=== PATIENT | female | born 1975 | race Caucasian/White ===

== ENCOUNTER → 2016-05-13 | Outpatient (CLI) | payer BC, OTHER ==
[2016-04-30 14:05] VITALS: BP 168/88
[~2016-05-13] MED LIST: ALPR0.5T PO; ATOR40TA PO; CHOL500050 PO; CYAN100072 IM; DICL100G7 TP; DOXY100T PO; EMPA10TA PO; EZET1TAB5 PO; FLUO40CA9 PO; FURO-68 PO; GABA-586 PO; HYDR-2672 PO; HYDR-2678 PO; HYDR-2680 PO; HYDR-971 PO; LEVO175T2 PO; LEVO500T38 PO; LEVO750T31 PO; LEVO75TA5 PO; LIOT25TA3 PO; LIRA0.6P2 SQ; MELO15TA6 PO; METF500T4 PO; METH-38 PO; METH500T7 PO; METH750T2 PO; METR500T PO; MOME13HF2 IH; NAPR500T PO; OMEP40CA5 PO; ONDA4TAB10 SL; OXYB5TAB7 PO; POTA10CA PO; POTA20TA12 PO; PRAM0.125 PO; PRAM0.255 PO; PROAIR HFA8.5 GM IH; PROG100C7 PO; PROG200C2 PO; PROG200C7 PO; SAXA2.5T PO; SAXA5TAB PO; SENN1TAB70 PO; SIMV40TA3 PO; THYR30TA PO; THYR60TA PO; TIOT18CA IH; TIZA4TAB PO; TOPI200C PO; TOPI200T25 PO; UBID100C26 PO; UBID30CA9 PO; VARE1TAB21 PO; VARE1TAB5 PO; clindamycin; dhea; dulera; pregnenolone
--- NOTE | 2016-05-13 10:52 | RAD ---
Chest, 2 views, 05/13/2016: History: Shortness of breath Comparison is made to a study from 04/14/2014. The heart size and pulmonary vascularity are normal. No pulmonary infiltrates are seen. There is no evidence of pleural fluid. IMPRESSION: No acute cardiopulmonary abnormality is detected.
== END | disposition home or self-care (01) ==
LOC: RAD 10:09
PROVIDERS: ATTEND Internal Medicine Critical Care Medicine
DX: R06.02 Shortness of breath (principal)
CPT/HCPCS: 71020

== ENCOUNTER 2016-06-18 00:49 | Emergency (ER) | payer BC, OTHER ==
[~2016-06-18] VITALS: Ht 172.7 cm; Wt 163.3 kg
[2016-06-18 01:44] LABS: BILIRUBIN,URINE NEGATIVE (NEG); GLUCOSE,URINE >=1000 mg/dL (NEG); NITRITE,URINE NEGATIVE (NEG); PROTEIN,URINE NEGATIVE (NEG-TRACE); UROBILINOGEN,URINE 0.2 mg/dL (0.2 mg/dL)
[2016-06-18 01:54] LABS: BACTERIA,URINE MODERATE /HPF (0-FEW); RBC,URINE 0 /HPF (0-2)
[2016-06-18 01:55] LABS: SQUAMOUS EPITHELIAL CELL,UR MANY /LPF
[2016-06-18] MEDS ORDERED: METR500T PO (02:16)
[2016-06-18] MEDS ORDERED: CIPR500T94 PO (02:16)
--- NOTE | 2016-06-18 02:16 | PHYS DOC ---
Past Medical History Past Medical History: Asthma, COPD, Diabetes-Type II, Diverticulitis, Diverticulosis Additional Past Medical Histor: Hypokalemia, Morbid Obesity Past Surgical History: Appendectomy, Cholecystectomy, Colectomy, Hysterectomy, Tonsillectomy Additional Past Surgical Histo: bladder tape. knee surgery scope, PART OF COLON REMOVED DUE TO DIV Alcohol Use: None Drug Use: None Adult General Chief Complaint Chief Complaint: VAGINAL PROBLEM HPI HPI 41-year-old female presents with pelvic pain vaginal discharge. She states is been going on for couple of days but the pain has intensified throughout the day today. She denies any fever chills or sweats. She's had no nausea or vomiting. She's had no vaginal bleeding or discharge. She states the pain is worse with any activity. She states she has not been sexually active recently. [ ] Review of Systems Review of Systems Constitutional: Denies fever or chills [] Eyes: Denies change in visual acuity, redness, or eye pain [] HENT: Denies nasal congestion or sore throat [] Respiratory: Denies cough or shortness of breath [] Cardiovascular: No additional information not addressed in HPI [] GI: Denies abdominal pain, nausea, vomiting, bloody stools or diarrhea [] : Per history of present illness [] Musculoskeletal: Denies back pain or joint pain [] Integument: Denies rash or skin lesions [] Neurologic: Denies headache, focal weakness or sensory changes [] Endocrine: Denies polyuria or polydipsia [] Allergies Allergies Allergies Coded Allergies Type Severity Reaction Last Updated Verified cephalexin Adverse Reaction Intermediate Nausea and Vomiting 02/18/16 Yes morphine Adverse Reaction Intermediate Nausea and Vomiting 02/18/16 Yes phentermine Adverse Reaction Intermediate MUSCULAR PROBLEMS 02/18/16 Yes Physical Exam Physical Exam Constitutional: Well developed, well nourished, no acute distress, non-toxic appearance. [] HENT: Normocephalic, atraumatic, bilateral external ears normal, oropharynx moist, no oral exudates, nose normal. [] Eyes: PERRLA, EOMI, conjunctiva normal, no discharge. [] Neck: Normal range of motion, no tenderness, supple, no stridor. [] Cardiovascular:Heart rate regular rhythm, no murmur [] Lungs & Thorax: Bilateral breath sounds clear to auscultation [] Abdomen: Bowel sounds normal, soft, no tenderness, no masses, no pulsatile masses, mild cervical motion tenderness thick yellow-white discharge that is very malodorous. [] Skin: Warm, dry, no erythema, no rash. [] Back: No tenderness, no CVA tenderness. [] Extremities: No tenderness, no cyanosis, no clubbing, ROM intact, no edema. [] Neurologic: Alert and oriented X 3, normal motor function, normal sensory function, no focal deficits noted. [] Psychologic: Affect normal, judgement normal, mood normal. [] Current Patient Data Vital Signs Vital Signs Date Time Temp Pulse Resp B/P Pulse Ox O2 Delivery O2 Flow Rate FiO2 06/18/16 01:00 98 75 18 146/63 96 Room Air 98.0 Lab Values Laboratory Tests Test 06/18/16 00:30 06/18/16 01:20 POC Urine HCG, Qualitative Hcg negative (Negative) Urine Collection Type Unknown Urine Color Yellow Urine Clarity Clear Urine pH 6.0 Urine Specific [place] >=1.030 Urine Protein Negativemg/dL (NEG-TRACE) Urine Glucose (UA) >=1000mg/dL (NEG) Urine Ketones (Stick) Negativemg/dL (NEG) Urine Blood Negative (NEG) Urine Nitrite Negative (NEG) Urine Bilirubin Negative (NEG) Urine Urobilinogen Dipstick 0.2mg/dL (0.2 mg/dL) Urine Leukocyte Esterase Negative (NEG) Urine RBC 0/HPF (0-2) Urine WBC 1-4/HPF (0-4) Urine Squamous Epithelial Cells Many/LPF Urine Bacteria Moderate/HPF (0-FEW) Urine Mucus Marked/LPF EKG EKG [] Radiology/Procedures Radiology/Procedures [] Course & Med Decision Making Course & Med Decision Making Pertinent Labs and Imaging studies reviewed. (See chart for details) [] Dragon Disclaimer Dragon Disclaimer This electronic medical record was generated, in whole or in part, using a voice recognition dictation system. Departure Departure Impression: Primary Impression: Vaginal discharge Disposition: HOME, SELF-CARE Condition: STABLE Referrals: DELISA HAYS MD (PCP) Patient Instructions: Pelvic Inflammatory Disease, Urinary Tract Infection Additional Instructions: Thank you for allowing us to participate in your care today. Followup with your primary care physician in 3 days if your symptoms do not improve. Return to the emergency department you have any new or concerning findings. This should be evaluated by the primary care physician and any necessary consulting services for continued management within a few days after discharge. Return to emergency room if you have any new or concerning symptoms including but not limited to fever, chills, nausea, vomiting, intractable pain, any new rashes, chest pain, shortness of air, uncontrolled bleeding, difficulty breathing, and/or vision loss. You may have been prescribed medication that can change in your level of thinking and ability to operate machinery. These medications include hydrocodone and Ativan. Also, Benadryl has been known to do this as well. Be sure to check with your pharmacist and ask if the medications you've prescribed can affect your level of consciousness. I recommend not operating heavy machinery or driving while on medication such as these. Scripts Metronidazole (Flagyl)500 Mg Tauzww001 Mg PO TID Vaginosis #30 TAB Prov:NOY LYLE DO 06/18/16 Ciprofloxacin Hcl (Cipro)500 Mg Tablet1 Tab PO BID PRN UTI #10 TAB Prov:NOY LYLE DO 06/18/16 NOY LYLE DO Jun 18, 2016 02:16
[2016-06-18] MEDS ORDERED: FLUCONAZOLE 100 MG TABLET. PO ONE (02:30)
[2016-06-18] MEDS ORDERED: AZITHROMYCIN 250 MG TABLET. PO ONE (02:30)
[2016-06-18] MEDS ORDERED: CEFTRIAXONE IM 250 MG VIAL. IM ONE (02:30)
[2016-06-18 02:39] VITALS: BP 149/74
== END 2016-06-18 02:40 | disposition home or self-care (01) ==
LOC: ER 00:49
DX: N89.8 Other specified noninflammatory disorders of vagina (principal); R10.2 Pelvic and perineal pain; J44.0 Chronic obstructive pulmonary disease with (acute) lower respiratory infection; J45.909 Unspecified asthma, uncomplicated; E11.9 Type 2 diabetes mellitus without complications; E87.6 Hypokalemia; Z90.49 Acquired absence of other specified parts of digestive tract; Z90.710 Acquired absence of both cervix and uterus; Z87.19 Personal history of other diseases of the digestive system; Z88.1 Allergy status to other antibiotic agents; Z88.5 Allergy status to narcotic agent; Z88.8 Allergy status to other drugs, medicaments and biological substances
CPT/HCPCS: 81001; 81025; 87086; 87491; 87591; 96372; 99284; J0696; Q0111; Q0144

== ENCOUNTER → 2016-06-27 | Outpatient (CLI) | payer BC, OTHER ==
[2016-06-18 02:39] VITALS: BP 149/74
[~2016-06-27] MED LIST changes: +CIPR500T94 PO
--- NOTE | 2016-06-27 11:31 | RAD ---
CT of the chest without contrast, 06/27/2016: History: Follow-up lung nodule Noncontrast scans were obtained as requested. Comparison is made to a study from 04/19/2014. There is a small unchanged 6 x 3 mm. perifissural nodule in the right lower lobe as seen on image 136 of series 3. This sort of nodule typically represents a vascular structure or intrapulmonary lymph node. Its stability indicates a benign etiology. There are a few small scattered linear parenchymal scars. A calcified granuloma is present in the right lower lobe. No new pulmonary nodule or mass is seen. No pulmonary consolidation is evident. No pleural fluid is identified. The thoracic aorta is of normal caliber. No mediastinal adenopathy is seen. Several granulomatous-type calcifications are noted in the spleen, the liver and within several lymph nodes in the upper abdomen. There are mild scattered spurs in the spine. IMPRESSION: 1. Old healed granulomatous disease. 2. Stable, benign, right perifissural nodule. 3. No acute chest abnormality is detected. PQRS Compliance Statement: One or more of the following individualized dose reduction techniques were utilized for this examination: 1. Automated exposure control 2. Adjustment of the mA and/or kV according to patient size 3. Use of iterative reconstruction technique
== END | disposition home or self-care (01) ==
LOC: CT 08:16
PROVIDERS: ATTEND Internal Medicine Critical Care Medicine
DX: R91.1 Solitary pulmonary nodule (principal)
CPT/HCPCS: 71250

== ENCOUNTER → 2017-07-20 | Outpatient (CLI) | payer OTHER | END | disposition home or self-care (01) | LOC: KCIC MAMMO 09:48 | DX: R92.2 Inconclusive mammogram (principal) | CPT/HCPCS: 76641; 77066 ==

== ENCOUNTER → 2017-10-26 | Outpatient (CLI) | payer OTHER ==
[~2017-10-26] MED LIST changes: +DICL100G18 TP; -DICL100G7 TP; +EZET1TAB35 PO; -EZET1TAB5 PO; -HYDR-2672 PO; +HYDR-2766 PO; -LEVO500T38 PO; +LEVO500T59 PO; -METF500T4 PO; +METF500T5 PO; +NAPR-683 PO; -NAPR500T PO; -POTA10CA PO; +POTA10TA12 PO; +PROG100C15 PO; -PROG100C7 PO; +PROG200C15 PO; -PROG200C7 PO; -TOPI200C PO; +TOPI200C6 PO
--- NOTE | 2017-10-26 18:03 | KCIC ---
Bilateral breast ultrasound: Reason for examination: Follow-up discoloration in the right breast and nodules in the left breast. Comparison is made to previous study dated 07/20/2017. Ultrasound examination was performed in the area of discoloration on the skin in the right breast and at the right axilla. Ultrasound examination of the left breast was performed including the retroareolar and axillary regions. The right breast shows no discrete cystic or solid nodules or architectural distortions. No abnormal appearing lymph nodes are seen in the axilla. The left breast continues to show small cystic/fibrocystic lesions which are subcentimeter in size at the 3:30 position 14 cm from the nipple, at the 9:00 position 7 cm from the nipple, and at the 9:30 position 9 cm from the nipple. No suspicious lesions are seen. No abnormal appearing lymph nodes are seen in the axilla. IMPRESSION: Continued presence of benign-appearing cystic and fibrocystic lesions in the left breast which shows some interval improvement. No suspicious abnormality seen in either breast. Recommend routine mammographic follow-up. BI-RADS Category 2: Benign. "Our facility is accredited by the [employer] Mammography [employer]." This patient's information has been entered into a reminder system for the patient to be notified with the results of her examination and a target date for the next mammogram. Electronically signed by: Sara Jacome MD (10/26/2017 6:00 PM) [id number]
== END | disposition home or self-care (01) ==
LOC: KCIC MAMMO 12:57
PROVIDERS: ATTEND Surgery
DX: R92.8 Other abnormal and inconclusive findings on diagnostic imaging of breast (principal); I10 Essential (primary) hypertension; E78.2 Mixed hyperlipidemia; E03.9 Hypothyroidism, unspecified; J44.9 Chronic obstructive pulmonary disease, unspecified; K21.9 Gastro-esophageal reflux disease without esophagitis; Z87.891 Personal history of nicotine dependence
CPT/HCPCS: 76641

== ENCOUNTER → 2018-07-13 | Outpatient (CLI) | payer BC ==
[~2018-07-13] MED LIST changes: +ALBU2.5V8 IH; -GABA-586 PO; +GABA300C18 PO; -HYDR-2766 PO; +HYDR-2769 PO; +HYDR-3164 PO; -HYDR-971 PO; +LIOT25TA PO; -LIOT25TA3 PO; +METF500T16 PO; -METF500T5 PO; -PROAIR HFA8.5 GM IH
--- NOTE | 2018-07-13 20:16 | PCVCIMAG ---
EXAM: VENOUS DUPLEX LEFT LOWER EXTREMITY INDICATION: Leg pain and swelling. FINDINGS: Left leg: No thrombus in the common femoral, main femoral, or popliteal veins. These veins are compressible with phasic flow. Calf veins are unremarkable where seen. IMPRESSION: No evidence of deep venous thrombosis in the left lower extremity as detailed above. LOC:[id number]
== END | disposition home or self-care (01) ==
LOC: PCVCIMAG 14:48
PROVIDERS: ATTEND Podiatrist Foot & Ankle Surgery
DX: M79.89 Other specified soft tissue disorders (principal); M79.605 Pain in left leg
CPT/HCPCS: 93971

== ENCOUNTER → 2018-09-10 | Outpatient (CLI) | payer BC, OTHER ==
--- NOTE | 2018-09-10 16:18 | KCIC ---
Bilateral digital screening mammograms with 3-D tomosynthesis: Reason for examination: Routine screening. Comparison is made to previous studies dated 07/20/2017 and 10/31/2013. Bilateral mammograms in CC and oblique projections were obtained with 2-D imaging and 3-D tomosynthesis imaging on a Siemens Inspiration unit and reviewed on the workstation. Interpretation was made with the benefit of CAD. The skin and nipples show no abnormalities. No abnormal axillary lymph nodes are seen. The breast parenchyma shows scattered fatty and fibroglandular density. (Breast density: Category B.) There are no dominant masses, suspicious calcifications or architectural distortion. Impression: No evidence of malignancy. Recommend routine screening. BI-RAD Category 2: Benign. "Our facility is accredited by the [employer] Mammography Program." This patient's information has been entered into a reminder system for the patient to be notified with the results of her examination and a target date for the next mammogram. Electronically signed by: Sara Jacome MD (09/10/2018 4:15 PM) [id number]
== END | disposition home or self-care (01) ==
LOC: KCIC MAMMO 11:01
PROVIDERS: ATTEND Family Medicine
DX: Z12.31 Encounter for screening mammogram for malignant neoplasm of breast (principal)
CPT/HCPCS: 77063; 77067

== ENCOUNTER → 2018-10-01 | Outpatient (CLI) | payer BC, OTHER ==
--- NOTE | 2018-10-01 11:12 | KCIC ---
LUMBAR SPINE WO CONTRAST History: Low back pain. Leg weakness. Technique: Multiplanar, multi sequential MR imaging was performed of the lumbar spine. Comparison: Lumbar spine MRI October 25, 2014 Findings: Normal vertebral body height and alignment. No fracture. S2 vertebral body hemangioma, unchanged. Conus terminates at the normal location. No evidence of nerve root clumping. Horseshoe kidneys. L1-L2: No canal or neuroforaminal narrowing. L2-L3: No canal or neuroforaminal narrowing. Mild facet arthropathy. L3-L4: No canal or neuroforaminal narrowing. Mild facet arthropathy. L4-L5: Minimal posterior disc bulge. Mild facet arthropathy. Mild bilateral subarticular recess narrowing with abutment of the descending L5 nerve roots, left greater than right, unchanged. No canal narrowing. No neuroforaminal narrowing. L5-S1: Left subarticular recess disc protrusion contacting and displacing the left descending S1 nerve root. No canal narrowing. Prominent ventral epidural fat. No neural foraminal narrowing. Impression: 1. L5-S1 left subarticular recess disc protrusion contacting and displacing the left descending S1 nerve root, unchanged. Recommend correlation for left S1 radiculopathy. 2. Mild bilateral L4-L5 subarticular recess narrowing with abutment of the descending L5 nerve roots, unchanged. 3. Horseshoe kidneys. Electronically signed by: Aj Benítez DO (10/01/2018 11:09 AM) [id number]
== END | disposition home or self-care (01) ==
LOC: KCIC MRI 09:59
PROVIDERS: ATTEND Family Medicine
DX: M51.27 Other intervertebral disc displacement, lumbosacral region (principal); M48.061 Spinal stenosis, lumbar region without neurogenic claudication; Q63.1 Lobulated, fused and horseshoe kidney; M12.88 Other specific arthropathies, not elsewhere classified, other specified site; D18.09 Hemangioma of other sites
CPT/HCPCS: 72148

== ENCOUNTER 2019-08-25 19:08 | Inpatient (IN) | payer BC, OTHER ==
[~2019-08-25] VITALS: Ht 172.7 cm; Wt 162.2 kg
[~2019-08-25 19:08] MED LIST changes: -DICL100G18 TP; +DICL100G54 TP; -LIOT25TA PO; +LIOT25TA4 PO; +OMEP40CA45 PO; -OMEP40CA5 PO; +OXYB5TAB10 PO; -OXYB5TAB7 PO; +PROG200C10 PO; -PROG200C2 PO; +SIMV40TA18 PO; -SIMV40TA3 PO; -TIZA4TAB PO; +TIZA4TAB2 PO
--- NOTE | 2019-08-25 19:20 | NUR ---
Pt. arrived on unit around 1919 by wheelchair and with Fredy at bedside. Pt. comes as a direct admit from home. Pt. complains of pain 12/23. Call light within reach with bed in lowest position. Will continue to monitor.
[2019-08-25 19:54] VITALS: BP 153/74
[2019-08-25] MEDS ORDERED: ONDANSETRON PF 4 MG/2 ML VIAL. IVP PRN (20:15)
[2019-08-25] MEDS ORDERED: HYDROmorphone 2 MG/ML VIAL IV PRN (20:15)
[2019-08-25] MEDS: IV NORMAL SALINE 1000ML BAG 1,000 ML IV SCH (21:36)
--- NOTE | 2019-08-25 21:43 | HP ---
ADMIT DATE: 08/25/2019 CHIEF COMPLAINT: Fall with left arm pain. HISTORY OF PRESENT ILLNESS: The patient is a pleasant, obese lady, who fell. She states she tripped over a broom stick that her daughter had accidentally left in their hallway near the bathroom. Basically, she fell and suffered a humerus fracture. The patient was seen at [facility] and sent home, but then Dr. Altman called me this afternoon and stated that he wanted to go ahead and have the patient come in as a direct admit and he is going to take her to surgery in the a.m. PAST MEDICAL HISTORY: Obese and previous tobacco abuse, but she quit a year ago. ALLERGIES: None. FAMILY HISTORY: Diabetes. SOCIAL HISTORY: She does not drink, smoke or take drugs. She has 5 kids. She is a [id number] mom. MEDICATIONS: Reviewed, please refer to the MRAD. REVIEW OF SYSTEMS: GENERAL: No history of weight change, weakness or fevers. SKIN: No bruising, hair changes or rashes. EYES: No blurred, double or loss of vision. NOSE AND THROAT: No history of nosebleeds, hoarseness or sore throat. HEART: No history of palpitations, chest pain or shortness of breath on exertion. LUNGS: Denies cough, hemoptysis, wheezing or shortness of breath. GASTROINTESTINAL: Denies changes in appetite, nausea, vomiting, diarrhea or constipation. GENITOURINARY: No history of frequency, urgency, hesitancy or nocturia. NEUROLOGIC: Denies history of numbness, tingling, tremor or weakness. PSYCHIATRIC: No history of panic, anxiety or depression. ENDOCRINE: No history of heat or cold intolerance, polyuria or polydipsia. EXTREMITIES: She complains of left arm pain. PHYSICAL EXAMINATION: VITALS: Within normal limits and are stable. GENERAL: No apparent distress. Alert and oriented. HEENT: Normal cephalic atraumatic, external auditory canals are patent EYES: Extraocular muscles are intact, pupils are equally round and reactive to light and accommodation MUSCULOSKELETAL: Well developed, well nourished, good range of motion ENDOCRINE: No thyromegaly was palpated LYMPHATICS: No cervical chain or axillary nodes were noted HEMATOPOIETIC: No bruising NECK: Supple, no JVD, no thyromegaly was noted. LUNGS: Clear to auscultation in all lung osullivan without rhonchi or wheezing. HEART: RRR, S1, S2 present. Peripheral pulses intact, no obvious murmurs were noted. ABDOMEN: Soft, nontender. Positive bowel sounds no organomegaly, normal bowel sounds. EXTREMITIES: The left arm is in a sling, tender to touch. NEUROLOGIC: Normal speech, normal tone. A & O x3, moves all extremities, no obvious focal deficits. PSYCHIATRIC: Normal affect, normal mood. Stable. SKIN: No ulcerations or rashes, good skin turgor, no jaundice. VASCULAR: Good capillary refill, neurovascular bundle appears to be intact. ASSESSMENT AND PLAN: Left proximal humerus fracture after a fall. The patient will be admitted. We consulted Dr. Altman and I am going to consult Dr. Sibley because of the history of chronic obstructive pulmonary disease. Check her COVID-19 test as a preoperative evaluation. Home meds. Deep venous thrombosis prophylaxis. Full code. Svetlana Duvall. YAO HERNANDEZ DO DR: JONNA/raúl JOB#: [id number] / [id number]
--- NOTE | 2019-08-25 23:01 | CONS ---
DATE OF CONSULTATION: 08/25/2019 CHIEF COMPLAINT: Proximal humerus fracture, left. HISTORY: The patient is a 44-year-old female who was seen today at [facility] Emergency Department after tripping over a broom that her daughter had apparently left outside the bathroom and the patient did not see the broom in the hallway, tripped over it and fell with a lot of force on her left side, primarily. She said her elbow actually punched through the wall in a small area and she had immediate onset of pain in the shoulder area that was very severe in nature. She also sustained a contusion to her right knee and indicates somewhat of a history of right knee injury from several weeks back, where she hyperflexed the knee apparently, may be twisted it in the garden. She said she was set up for a brace by her primary care physician and she said there was some talk of further working this up with some type of imaging, she thought a CT scan. She was originally sent home from the Emergency Department, but I had called on reviewing the x-rays and was contemplating surgery. The patient indicated to my office staff that she could not take the pain. She got fentanyl at the Emergency Department and Percocet and neither of them had been touching the pain. She has been very, very painful and really did not feel that she could wait until a Thursday clinic appointment for further evaluation. Therefore, she was direct admitted to Dr. Roque with an orthopedic consultation. PAST MEDICAL HISTORY: Significant for some lung problems, which she describes as COPD. She is not diabetic, but indicates a family history of diabetes. SOCIAL HISTORY: Denies smoking, alcohol or drug use. She is , has 5 children and her 8-year-old was very upset after causing her to fall leaving the broom in the hallway. MEDICATIONS: List is reviewed. ALLERGIES: INCLUDE KEFLEX, MORPHINE, AND PHENTERMINE. REVIEW OF SYSTEMS: She denies any loss of consciousness with the fall, head injury, just the difficulty moving her shoulder, only has some slight feeling of bruising of the left elbow. Her right knee was giving her some mild chronic problems with her other injury, a little bit worse now after the fall and she has had some swelling in the right knee prior to this. She denies any radiating pain, focal weakness, numbness, tingling, neck or back pain, visual changes, chest pain, shortness of breath. She indicates quitting smoking about a year ago. FAMILY HISTORY: Lung cancer in her father as well. PHYSICAL EXAMINATION: GENERAL: Pleasant, cooperative 44-year-old female. EXTREMITIES: Exam of the left shoulder reveals severe tenderness on any movement or palpation. No gross instability is present. She has normal examination of the right shoulder, bilateral elbows and wrists. Distal pulses, motor function and sensation are intact. On examination of the right knee, she has no gross ligamentous instability. She has some slight tenderness on varus valgus stress, but no opening, just a trace effusion. Good patellofemoral tracking. No cruciate ligament instability. She does have some joint line tenderness, made worse with Julia's testing on the right that is not present on the left, where she otherwise has normal examination, normal alignment and stability of bilateral hips and ankles with intact motor function, distal pulses, sensation, reflexes, and skin in both lower extremities. IMAGING: X-rays of the left shoulder show a proximal humerus fracture that appears to have some malalignment and some impaction with apparent displacement of the greater tuberosity. IMPRESSION: 1. Left proximal humerus fracture. 2. Right knee contusion. 3. History of previous knee injury, possible suspicion for meniscal injury. TREATMENT PLAN: I went over with her the treatment options for the humerus of nonoperative treatment in an immobilizer-type device versus operative fixation. I indicated to her that with either treatment, she is likely to have some decreased range of motion, soreness, weakness with surgery. There is the advantage of alignment allowing some earlier gentle range of motion, but it will not help the overall healing faster and there are risks of infection, nerve or blood vessel damage, medical or other anesthetic complications associated with the surgery itself. She is somewhat more concerned with the difficulty getting around with her knee issue preexisting and exacerbated by the fall as well, which would somewhat more lean toward surgical intervention on the humerus without limitation. All her questions were answered. She does wish to proceed with surgical evaluation and treatment, and at this point, all her questions were answered regarding that issue. I did recommend, based on what she described in her examination, that an MRI would be much more useful than a CT scan or other imaging that was contemplated on her right knee and likewise, based on her ligament examination, I did not anticipate that a brace would be helpful for her at this point and I would probably prefer checking her MRI results as an outpatient as she is not that acutely limited by the exacerbation at this point. JULIA UMANZOR MD DR: DAVID/raúl JOB#: [id number] / [id number]
[2019-08-25 23:05] VITALS: BP 145/94
[2019-08-25] MEDS: HYDROmorphone 2 MG/ML VIAL IV PRN (23:30)
[2019-08-26] MEDS ORDERED: ZOLPIDEM 5 MG TABLET. PO PRN (00:45)
[2019-08-26] MEDS: oxyCODONE/APAP 10/325 1 TAB TABLET PO PRN (00:55)
[2019-08-26] MEDS: HYDROmorphone 2 MG/ML VIAL IV PRN ×6 (01:31→15:40)
[2019-08-26 03:07] VITALS: BP 164/85
[2019-08-26] MEDS ORDERED: ATOR10TA60 PO (04:33)
[2019-08-26] MEDS ORDERED: ALPR0.25 PO (04:33)
[2019-08-26] MEDS ORDERED: CITA20TA9 PO (04:33)
[2019-08-26] MEDS ORDERED: POTA20TA4 PO (04:33)
[2019-08-26] MEDS ORDERED: TOPI100T8 PO (04:33)
[2019-08-26] MEDS ORDERED: LAMO100T8 PO (04:33)
[2019-08-26 06:58] LABS: BASO % 1 % (0-3); EOS # 0.1 x10^3/uL (0.0-0.7); EOS % 2 % (0-3); HEMATOCRIT 46.2 % (36.0-47.0); HEMOGLOBIN 15.5 g/dL (12.0-15.5); LYMPH # 2.8 x10^3/uL (1.0-4.8); LYMPH % 36 % (24-48); MEAN CORPUSCULAR HEMOGLOBIN 32 pg (25-35); MEAN CORPUSCULAR HGB CONC 34 g/dL (31-37); MEAN CORPUSCULAR VOLUME 94 fL (79-100); MONO # 0.8 x10^3/uL (0.0-1.1); MONO % 11 % (0-9); NEUT % 51 % (31-73); PLATELET COUNT 212 x10^3/uL (140-400); RED BLOOD COUNT 4.92 x10^6/uL (3.50-5.40); RED CELL DISTRIBUTION WIDTH 14.8 % (11.5-14.5); WHITE BLOOD COUNT 7.7 x10^3/uL (4.0-11.0)
[2019-08-26 07:00] VITALS: BP 139/75
[2019-08-26] MEDS ORDERED: CLINDAMYCIN 900MG PREMIX 50 ML IV ONE ×2 (07:00→17:22)
[2019-08-26 07:11] LABS: ALBUMIN 3.5 g/dL (3.4-5.0); ALBUMIN/GLOBULIN RATIO 0.9 (1.0-1.7); CALCIUM 8.5 mg/dL (8.5-10.1); GFR 59.7; POTASSIUM 3.8 mmol/L (3.5-5.1); TOTAL BILIRUBIN 0.9 mg/dL (0.2-1.0); TOTAL PROTEIN 7.4 g/dL (6.4-8.2)
--- NOTE | 2019-08-26 09:08 | NUR ---
SW following. Discussed with RN, pt from home, room air. Surgery after Covid-19 result obtained. SW will continue to follow.
--- NOTE | 2019-08-26 09:31 | CONS ---
DATE OF CONSULTATION: PULMONARY CONSULTATION ATTENDING PHYSICIAN: Dr. Roque. REASON FOR CONSULTATION: Tobacco use. Needs clearance for surgery. HISTORY OF PRESENT ILLNESS: The patient is a 44-year-old obese female with a BMI of 54. She states she smoked for about 15 years, quit about a year ago. She fell and suffered a humerus fracture on the left side. I have been asked to see her for preoperative clearance. She will require surgery today. She denies any exertional dyspnea and denies any cough, fever or chills. No chest pains. She said she had been tested for sleep apnea and it was not found. There is no recent chest x-ray done. Last CT chest was from 2017. I have been asked to see her for further evaluation. PAST MEDICAL HISTORY: Significant for obesity and tobacco use. She quit a year ago. PAST SURGICAL HISTORY: No recent surgery. ALLERGIES: None. FAMILY HISTORY: Diabetes. SOCIAL HISTORY: Smoked for 15 years before quitting a year ago. No history of alcohol use. MEDICATIONS: Reviewed as listed in the MRAD including oxycodone. REVIEW OF SYSTEMS: Twelve-point system obtained. Pertinent positives discussed in my history of present illness, otherwise noncontributory. All systems that were negative were reviewed as well. PHYSICAL EXAMINATION: GENERAL: She is awake, but she does dozes off in between conversation that she is on narcotics. VITAL SIGNS: Blood pressure stable, pulse ox 90% on room air. NECK: Supple. LUNGS: With diminished breath sounds. CARDIOVASCULAR: With a regular rate. ABDOMEN: Soft, obese. EXTREMITIES: With no pitting edema. LABORATORY DATA: Reviewed. White cell count 7.7, hemoglobin 15.5 and platelets are 212. BUN and creatinine 13 and 1.0. AST and ALT elevated. IMPRESSION: 1. The patient with 15 years of tobacco use, could have mild chronic obstructive pulmonary disease. She also has underlying obesity with a BMI of 54. She needs preop clearance for left humeral surgery. From a pulmonary standpoint, she is stable; however, with postop need for narcotics, she may be at risk for hypercapnia and postoperative atelectasis. She needs to be closely followed up for that. 2. Underlying morbid obesity. 3. Possible chronic obstructive pulmonary disease. RECOMMENDATIONS: 1. We will obtain a baseline chest x-ray. 2. Stable pulmonary status to proceed with surgery. 3. Add p.r.n. bronchodilators. 4. P.r.n. ABGs postoperatively. 5. Incentive spirometry postop. 6. Discussed risks and benefits of anesthetic in a patient who is morbidly obese. CARLA TORRES MD DR: ALIYAH/raúl JOB#: [id number] / [id number]
[2019-08-26] MEDS: IV NORMAL SALINE 1000ML BAG 1,000 ML IV SCH ×2 (10:13→22:55)
[2019-08-26 11:00] VITALS: BP 166/92
--- NOTE | 2019-08-26 11:10 | RAD ---
Single view of the chest. 08/26/2019 9:17 AM Indication: Reason: copd / Spl. Instructions: / History: Comparison: Chest radiograph June 27, 2016 Findings: There is no pneumothorax or definitive pleural effusion. There is central vascular congestion and interstitial thickening. Findings could represent hypervolemia/pulmonary edema/heart failure. There is borderline cardiomegaly. An atypical or viral infectious process could produce a similar appearance in the appropriate clinical setting. No acute osseous changes are seen. IMPRESSION: 1. Central vascular congestion and interstitial thickening. The appearance favors pulmonary edema. 2. An atypical or viral infectious process is less felt to be likely but not excluded. 3. Borderline cardiomegaly Electronically signed by: Tim Aquino MD (08/26/2019 11:07 AM) [id number]
[2019-08-26] MEDS: IPRATRPIUM/ALBUTEROL 0.5/2.5MG 3 ML NEBU. NEB SCH ×3 (11:20→23:48)
[2019-08-26] MEDS ORDERED: LIDOCAINE 2% PF 5 ML VIAL. ONE (11:25)
[2019-08-26] MEDS ORDERED: DEXAMETHASONE SOD PHOS 4 MG/ML VIAL ONE (11:25)
[2019-08-26] MEDS ORDERED: ONDANSETRON PF 4 MG/2 ML VIAL. ONE (11:25)
[2019-08-26] MEDS ORDERED: PROPOFOL 10 MG/ML (20ML) VIAL. IV ONE (11:25)
[2019-08-26] MEDS ORDERED: ROCURONIUM 50 MG/5 ML VIAL. ONE (11:26)
[2019-08-26] MEDS ORDERED: fentaNYL PF VIAL 100 MCG/2 ML VIAL ONE (11:26)
[2019-08-26] MEDS ORDERED: LEXAPRO20 MG PO (11:53)
[2019-08-26] MEDS ORDERED: DIET75TA PO (11:53)
[2019-08-26] MEDS ORDERED: BUDE10.2 IH (11:57)
--- NOTE | 2019-08-26 12:21 | NUR ---
Pt would benefit from PT/OT services once surgery completed to ensure safety with mobility post op. Please wrtie PT/OT eval and treat orders if you agree. Addendum: 08/26/19 at 1221 by СЕРГЕЙ COLE PT Amended: Links added.
--- NOTE | 2019-08-26 13:56 | PDOC ---
PROGRESS NOTES Chief Complaint Chief Complaint Left proximal humerus fracture after a fall. The patient will be admitted. We consulted Dr. Altman and I am going to consult Dr. Sibley because of the history of chronic obstructive pulmonary disease. Check her COVID-19 test as a preoperative evaluation. Home meds. Deep venous thrombosis prophylaxis. Full code. P.r.n. Dilaudid. Vitals Vitals Vital Signs Date Time Temp Pulse Resp B/P (MAP) Pulse Ox O2 Delivery O2 Flow Rate FiO2 08/26/19 12:56 Room Air 08/26/19 11:20 90 08/26/19 11:00 97.8 93 17 166/92 (116) 97.8 Physical Exam Lungs: Clear, Other Labs LABS Laboratory Tests Test 08/25/19 22:15 08/26/19 06:40 08/26/19 08:17 08/26/19 11:25 Glucose (Fingerstick) 136 mg/dL (70-99) 140 mg/dL (70-99) 163 mg/dL (70-99) White Blood Count 7.7 x10^3/uL (4.0-11.0) Red Blood Count 4.92 x10^6/uL (3.50-5.40) Hemoglobin 15.5 g/dL (12.0-15.5) Hematocrit 46.2 % (36.0-47.0) Mean Corpuscular Volume 94 fL (79-100) Mean Corpuscular Hemoglobin 32 pg (25-35) Mean Corpuscular Hemoglobin Concent 34 g/dL (31-37) Red Cell Distribution Width 14.8 % (11.5-14.5) Platelet Count 212 x10^3/uL (140-400) Neutrophils (%) (Auto) 51 % (31-73) Lymphocytes (%) (Auto) 36 % (24-48) Monocytes (%) (Auto) 11 % (0-9) Eosinophils (%) (Auto) 2 % (0-3) Basophils (%) (Auto) 1 % (0-3) Neutrophils # (Auto) 4.0 x10^3/uL (1.8-7.7) Lymphocytes # (Auto) 2.8 x10^3/uL (1.0-4.8) Monocytes # (Auto) 0.8 x10^3/uL (0.0-1.1) Eosinophils # (Auto) 0.1 x10^3/uL (0.0-0.7) Basophils # (Auto) 0.0 x10^3/uL (0.0-0.2) Sodium Level 139 mmol/L (136-145) Potassium Level 3.8 mmol/L (3.5-5.1) Chloride Level 104 mmol/L (98-107) Carbon Dioxide Level 25 mmol/L (21-32) Anion Gap 10 (6-14) Blood Urea Nitrogen 13 mg/dL (7-20) Creatinine 1.0 mg/dL (0.6-1.0) Estimated GFR (Cockcroft-Gault) 59.7 BUN/Creatinine Ratio 13 (6-20) Glucose Level 165 mg/dL (70-99) Calcium Level 8.5 mg/dL (8.5-10.1) Total Bilirubin 0.9 mg/dL (0.2-1.0) Aspartate Amino Transf (AST/SGOT) 101 U/L (15-37) Alanine Aminotransferase (ALT/SGPT) 123 U/L (14-59) Alkaline Phosphatase 91 U/L (46-116) Total Protein 7.4 g/dL (6.4-8.2) Albumin 3.5 g/dL (3.4-5.0) Albumin/Globulin Ratio 0.9 (1.0-1.7) Comment Review of Relevant I have reviewed the following items josi (where applicable) has been applied. Labs Laboratory Tests Test 08/25/19 22:15 08/26/19 06:40 08/26/19 08:17 08/26/19 11:25 Glucose (Fingerstick) 136 mg/dL (70-99) 140 mg/dL (70-99) 163 mg/dL (70-99) White Blood Count 7.7 x10^3/uL (4.0-11.0) Red Blood Count 4.92 x10^6/uL (3.50-5.40) Hemoglobin 15.5 g/dL (12.0-15.5) Hematocrit 46.2 % (36.0-47.0) Mean Corpuscular Volume 94 fL (79-100) Mean Corpuscular Hemoglobin 32 pg (25-35) Mean Corpuscular Hemoglobin Concent 34 g/dL (31-37) Red Cell Distribution Width 14.8 % (11.5-14.5) Platelet Count 212 x10^3/uL (140-400) Neutrophils (%) (Auto) 51 % (31-73) Lymphocytes (%) (Auto) 36 % (24-48) Monocytes (%) (Auto) 11 % (0-9) Eosinophils (%) (Auto) 2 % (0-3) Basophils (%) (Auto) 1 % (0-3) Neutrophils # (Auto) 4.0 x10^3/uL (1.8-7.7) Lymphocytes # (Auto) 2.8 x10^3/uL (1.0-4.8) Monocytes # (Auto) 0.8 x10^3/uL (0.0-1.1) Eosinophils # (Auto) 0.1 x10^3/uL (0.0-0.7) Basophils # (Auto) 0.0 x10^3/uL (0.0-0.2) Sodium Level 139 mmol/L (136-145) Potassium Level 3.8 mmol/L (3.5-5.1) Chloride Level 104 mmol/L (98-107) Carbon Dioxide Level 25 mmol/L (21-32) Anion Gap 10 (6-14) Blood Urea Nitrogen 13 mg/dL (7-20) Creatinine 1.0 mg/dL (0.6-1.0) Estimated GFR (Cockcroft-Gault) 59.7 BUN/Creatinine Ratio 13 (6-20) Glucose Level 165 mg/dL (70-99) Calcium Level 8.5 mg/dL (8.5-10.1) Total Bilirubin 0.9 mg/dL (0.2-1.0) Aspartate Amino Transf (AST/SGOT) 101 U/L (15-37) Alanine Aminotransferase (ALT/SGPT) 123 U/L (14-59) Alkaline Phosphatase 91 U/L (46-116) Total Protein 7.4 g/dL (6.4-8.2) Albumin 3.5 g/dL (3.4-5.0) Albumin/Globulin Ratio 0.9 (1.0-1.7) Laboratory Tests Test 08/25/19 22:15 08/26/19 06:40 08/26/19 08:17 08/26/19 11:25 Glucose (Fingerstick) 136 mg/dL (70-99) 140 mg/dL (70-99) 163 mg/dL (70-99) White Blood Count 7.7 x10^3/uL (4.0-11.0) Red Blood Count 4.92 x10^6/uL (3.50-5.40) Hemoglobin 15.5 g/dL (12.0-15.5) Hematocrit 46.2 % (36.0-47.0) Mean Corpuscular Volume 94 fL (79-100) Mean Corpuscular Hemoglobin 32 pg (25-35) Mean Corpuscular Hemoglobin Concent 34 g/dL (31-37) Red Cell Distribution Width 14.8 % (11.5-14.5) Platelet Count 212 x10^3/uL (140-400) Neutrophils (%) (Auto) 51 % (31-73) Lymphocytes (%) (Auto) 36 % (24-48) Monocytes (%) (Auto) 11 % (0-9) Eosinophils (%) (Auto) 2 % (0-3) Basophils (%) (Auto) 1 % (0-3) Neutrophils # (Auto) 4.0 x10^3/uL (1.8-7.7) Lymphocytes # (Auto) 2.8 x10^3/uL (1.0-4.8) Monocytes # (Auto) 0.8 x10^3/uL (0.0-1.1) Eosinophils # (Auto) 0.1 x10^3/uL (0.0-0.7) Basophils # (Auto) 0.0 x10^3/uL (0.0-0.2) Sodium Level 139 mmol/L (136-145) Potassium Level 3.8 mmol/L (3.5-5.1) Chloride Level 104 mmol/L (98-107) Carbon Dioxide Level 25 mmol/L (21-32) Anion Gap 10 (6-14) Blood Urea Nitrogen 13 mg/dL (7-20) Creatinine 1.0 mg/dL (0.6-1.0) Estimated GFR (Cockcroft-Gault) 59.7 BUN/Creatinine Ratio 13 (6-20) Glucose Level 165 mg/dL (70-99) Calcium Level 8.5 mg/dL (8.5-10.1) Total Bilirubin 0.9 mg/dL (0.2-1.0) Aspartate Amino Transf (AST/SGOT) 101 U/L (15-37) Alanine Aminotransferase (ALT/SGPT) 123 U/L (14-59) Alkaline Phosphatase 91 U/L (46-116) Total Protein 7.4 g/dL (6.4-8.2) Albumin 3.5 g/dL (3.4-5.0) Albumin/Globulin Ratio 0.9 (1.0-1.7) Medications Current Medications Sodium Chloride 1,000 ml @ 75 mls/hr [id number] IV Last administered on 08/26/19at 10:13; Start 08/25/19 at 20:15 Ondansetron HCl (Zofran) 4 mg PRN Q6HRS PRN IVP NAUSEA/VOMITING; Start 08/25/19 at 20:15 Hydromorphone HCl (Dilaudid) 1 mg PRN Q2HRS PRN IV MODERATE PAIN Last administered on 08/25/19at 21:33; Start 08/25/19 at 20:15 Hydromorphone HCl (Dilaudid) 2 mg PRN Q2HRS PRN IV SEVERE PAIN Last administered on 08/26/19at 12:56; Start 08/25/19 at 20:15 Zolpidem Tartrate (Ambien) 5 mg PRN QHS PRN PO INSOMNIA; Start 08/26/19 at 00:45 Oxycodone/ Acetaminophen (Percocet 10/325) 1 tab PRN Q4HRS PRN PO pain Last administered on 08/26/19at 00:55; Start 08/26/19 at 00:45 Clindamycin Phosphate 50 ml @ 100 mls/hr 1X PREOP ONCE IV ; Start 08/26/19 at 07:00; Stop 08/26/19 at 07:29; Status DC Albuterol/ Ipratropium (Duoneb) 3 ml RTQID NEB ; Start 08/26/19 at 12:00 Propofol (Diprivan) 200 mg STK-MED ONCE IV ; Start 08/26/19 at 11:25; Stop 08/26/19 at 11:26; Status DC Dexamethasone Sodium Phosphate (Decadron) 4 mg STK-MED ONCE .ROUTE ; Start 08/26/19 at 11:25; Stop 08/26/19 at 11:26; Status DC Lidocaine HCl (Lidocaine Pf 2% Vial) 5 ml STK-MED ONCE .ROUTE ; Start 08/26/19 at 11:25; Stop 08/26/19 at 11:26; Status DC Ondansetron HCl (Zofran) 4 mg STK-MED ONCE .ROUTE ; Start 08/26/19 at 11:25; Stop 08/26/19 at 11:26; Status DC Rocuronium [place] (Zemuron) 50 mg STK-MED ONCE .ROUTE ; Start 08/26/19 at 11:26; Stop 08/26/19 at 11:26; Status DC Fentanyl Citrate (Fentanyl 2ml Vial) 100 mcg STK-MED ONCE .ROUTE ; Start 08/26/19 at 11:26; Stop 08/26/19 at 11:26; Status DC Active Scripts Active Reported Symbicort 160-4.5 Mcg Inhaler (Budesonide/Formoterol Fumarate) 10.2 Gm Hfa.aer.ad 2 Puff IH BID Diethylpropion Hcl 75 Mg Tablet.er 75 Mg PO DAILY Lexapro (Escitalopram Oxalate) 20 Mg Tablet 20 Mg PO DAILY Klor-Con M20 (Potassium Chloride) 20 Meq Tab.er.prt 20 Meq PO BID Xanax (Alprazolam) 0.25 Mg Tablet 1 Tab PO PRN BID PRN Atorvastatin Calcium 10 Mg Tablet 1 Tab PO HS Lamotrigine 100 Mg Tablet 1 Tab PO HS Topiramate 100 Mg Tablet 1 Tab PO BID 30 Days Stool Softener Tablet (Sennosides/Docusate Sodium) 1 Each Tablet 1 Each PO Lortab 10-325 mg Tablet (Hydrocodone/Acetaminophen) 1 Each Tablet 1 Tab PO Q4HRS PRN Chantix (Varenicline Tartrate) 1 Mg Tablet 1 Mg PO BID Coq-10 (Ubidecarenone) 100 Mg Capsule 100 Mg PO DAILY Tizanidine Hcl 4 Mg Tablet 1 Tab PO BID PRN Mirapex (Pramipexole Di-Hcl) 0.25 Mg Tablet 0.125 Mg PO QHS Jardiance (Empagliflozin) 10 Mg Tablet 10 Mg PO DAILY Spiriva (Tiotropium [place]) 18 Mcg Cap.w.dev 1 Cap IH DAILY Omeprazole 40 Mg Capsule.dr 40 Mg PO DAILY Vitamin D3 (Cholecalciferol (Vitamin D3)) 50,000 Unit Capsule 50,000 Unit PO WEEKLY Lasix (Furosemide) 40 Mg Tablet 40 Mg PO DAILY Proair Hfa Inhaler (Albuterol Sulfate) 8.5 Gm Hfa.aer.ad 8.5 Gm IH Vitals/I & O Vital Sign - Last 24 Hours 08/25/19 08/25/19 08/25/19 08/25/19 19:54 21:33 22:12 23:05 Temp 98.0 98.0 98.0 98.0 Pulse 74 74 Resp 20 20 B/P (MAP) 153/74 (100) 145/94 (111) Pulse Ox 96 94 O2 Delivery Room Air Room Air Room Air Room Air 08/25/19 08/26/19 08/26/19 08/26/19 23:30 00:00 00:55 01:31 O2 Delivery Room Air Room Air Room Air Room Air 08/26/19 08/26/19 08/26/19 08/26/19 02:00 02:00 03:07 05:32 Temp 97.6 97.6 Pulse 66 Resp 20 B/P (MAP) 164/85 (111) Pulse Ox 91 O2 Delivery Room Air Room Air Room Air Room Air 08/26/19 08/26/19 08/26/19 08/26/19 06:02 07:00 07:45 08:08 Temp 97.5 97.5 Pulse 84 Resp 18 B/P (MAP) 139/75 (96) Pulse Ox 90 O2 Delivery Room Air Room Air Room Air Room Air 08/26/19 08/26/19 08/26/19 08/26/19 08:45 10:12 10:45 11:00 Temp 97.8 97.8 Pulse 93 Resp 17 B/P (MAP) 166/92 (116) Pulse Ox 90 O2 Delivery Room Air Room Air Room Air Room Air 08/26/19 08/26/19 11:20 12:56 Pulse Ox 90 O2 Delivery Room Air Room Air Intake and Output 08/25/19 08/25/19 08/26/19 15:00 23:00 07:00 Output Total 0 ml Balance 0 ml NARA CHAND MD Aug 26, 2019 13:56
[2019-08-26 15:00] VITALS: BP 168/119
[2019-08-26] MEDS ORDERED: PROCHLORPERAZINE 5 MG TABLET. PO PRN (15:45)
[2019-08-26] MEDS ORDERED: PROCHLORPERAZINE 10 MG/2 ML VIAL. IV PRN (16:30)
[2019-08-26] MEDS ORDERED: IV RINGERS,LACTATED 1000ML 1,000 ML IV SCH (20:00)
[2019-08-26] MEDS ORDERED: ePHEDrine PF IN SALINE 50 MG/10 ML SYRINGE. IV ONE ×2 (20:15→21:38)
[2019-08-26] MEDS ORDERED: NEOSTIGMINE METHYLSULFATE 5 MG/5 ML SYRINGE. ONE (21:37)
[2019-08-26] MEDS ORDERED: GLYCOPYRROLATE 1 MG/5 ML VIAL. ONE (21:37)
[2019-08-26] MEDS ORDERED: SEVOFLURANE > 120 MINUTES. IH ONE (22:08)
[2019-08-26 22:30] VITALS: BP 159/90
--- NOTE | 2019-08-26 22:39 | PDOC4 ---
Operative Note Operative Note Date of surgery: 08/26/2019 Preoperative diagnosis: Displaced three-part proximal humerus fracture Postoperative diagnosis: Same Operative procedure: Operative reduction internal fixation three-part proximal humerus fracture Surgeon: Anupama Headhunter: Ping Palacio Anesthesia: General Estimated blood loss: 100 cc Complications: None Operative indications: Patient is a 44-year-old female that had fallen over a broom coming out of her bathroom went to the [facility] emergency department initially and when we called to check on her in follow-up for clinic appointment she said she was in very severe pain uncontrolled by fentanyl in the emergency department and Percocet and could not wait for a follow-up and was therefore brought in for direct admission to our hospitalist Dr. Roque and underwent preoperative evaluation. I went over with her operative and nonoperative treatment alternatives the possibility even under the best of circumstances of some stiffness and pain the possibility with operative treatment of infection nerve or blood vessel damage medical or other than setting complications among others and the fact that this would just stabilize the fracture until it does heal it does not make the healing any faster. She voiced understanding of these factors and wishes to proceed with surgical evaluation and treatment. Operative text: Patient was identified procedure verified patient placed in the supine position on the operating table. After adequate amounts of general anesthesia were administered she was placed decubitus position right side up using the Stulberg hip positioner all bony prominences well-padded and the right shoulder was prepped and draped in standard sterile fashion. After timeout was performed patient procedure identified and verified a deltopectoral approach was carried out with deltoid and cephalic vein taken laterally clavipectoral fascia was divided distal insertion of the deltoid was bluntly dissected free to avoid excessive tension fracture fragments were located and reduced and a Nida Alps plate was placed just lateral to the bicipital groove and central guidewire was placed with reduction of the fracture in the center of the humeral head a shaft screw was then placed in the sliding hole to allow microscopic adjustment with a nonlocking screw and with satisfactory reduction and hardware placement the remaining locking screws in the humeral head were drilled measured and placed with cancellus screws that were verified to be in place and not penetrating the humeral head additional 2 locking shaft screws were placed and excellent reduction was noted under all degrees of internal and external rotation with fluoroscopic guidance thorough irrigation carried out normal saline solution subcutaneous closure with buried Vicryl suture subcuticular 4-0 Monocryl Steri- Strips and Mastisol were placed followed by sterile dressings. Patient was returned to recovery room in stable condition having tolerated the procedure well. Ping shearer was present for the procedure and assisted in the patient positioning prepping draping retraction and closure JULIA UMANZOR MD Aug 26, 2019 22:39
[2019-08-26 23:45] VITALS: BP 154/90
[2019-08-27] VITALS (9 sets, daily range): BP systolic 110–158; BP diastolic 60–96
[2019-08-27] MEDS: HYDROmorphone 2 MG/ML VIAL IV PRN ×2 (00:14→06:08)
--- NOTE | 2019-08-27 07:00 | NUR ---
Rounds made with previous shift nurse. Patient was instructed not to eat or drink anything at this time, pending surgical re-evaluation after patient reported to pull incision open. Patient has bulky dressing in place, covered with binder. Guards at bedside x 2.
[2019-08-27] MEDS: IPRATRPIUM/ALBUTEROL 0.5/2.5MG 3 ML NEBU. NEB SCH ×2 (07:11→12:00)
--- NOTE | 2019-08-27 08:20 | PDOC ---
PROGRESS NOTES Subjective Subjective Problems overnight: Pain significantly better than preoperatively, can move the shoulder without excruciating pain, notes stiffness Objective Vital Signs Vital Signs Date Time Temp Pulse Resp B/P (MAP) Pulse Ox O2 Delivery O2 Flow Rate FiO2 08/27/19 07:12 92 Nasal Cannula 4.0 08/27/19 03:15 97.8 92 20 137/77 (97) 97.8 Physical Exam Dressings clean and dry, distal neurovascular status intact, some muscle tightness with gentle shoulder range of motion Labs Laboratory Tests Test 08/25/19 22:15 08/26/19 00:01 08/26/19 06:40 08/26/19 08:17 Glucose (Fingerstick) 136 mg/dL (70-99) 140 mg/dL (70-99) Coronavirus (COVID-19)(PCR) Negative (NEGATIVE) White Blood Count 7.7 x10^3/uL (4.0-11.0) Red Blood Count 4.92 x10^6/uL (3.50-5.40) Hemoglobin 15.5 g/dL (12.0-15.5) Hematocrit 46.2 % (36.0-47.0) Mean Corpuscular Volume 94 fL (79-100) Mean Corpuscular Hemoglobin 32 pg (25-35) Mean Corpuscular Hemoglobin Concent 34 g/dL (31-37) Red Cell Distribution Width 14.8 % (11.5-14.5) Platelet Count 212 x10^3/uL (140-400) Neutrophils (%) (Auto) 51 % (31-73) Lymphocytes (%) (Auto) 36 % (24-48) Monocytes (%) (Auto) 11 % (0-9) Eosinophils (%) (Auto) 2 % (0-3) Basophils (%) (Auto) 1 % (0-3) Neutrophils # (Auto) 4.0 x10^3/uL (1.8-7.7) Lymphocytes # (Auto) 2.8 x10^3/uL (1.0-4.8) Monocytes # (Auto) 0.8 x10^3/uL (0.0-1.1) Eosinophils # (Auto) 0.1 x10^3/uL (0.0-0.7) Basophils # (Auto) 0.0 x10^3/uL (0.0-0.2) Sodium Level 139 mmol/L (136-145) Potassium Level 3.8 mmol/L (3.5-5.1) Chloride Level 104 mmol/L (98-107) Carbon Dioxide Level 25 mmol/L (21-32) Anion Gap 10 (6-14) Blood Urea Nitrogen 13 mg/dL (7-20) Creatinine 1.0 mg/dL (0.6-1.0) Estimated GFR (Cockcroft-Gault) 59.7 BUN/Creatinine Ratio 13 (6-20) Glucose Level 165 mg/dL (70-99) Calcium Level 8.5 mg/dL (8.5-10.1) Total Bilirubin 0.9 mg/dL (0.2-1.0) Aspartate Amino Transf (AST/SGOT) 101 U/L (15-37) Alanine Aminotransferase (ALT/SGPT) 123 U/L (14-59) Alkaline Phosphatase 91 U/L (46-116) Total Protein 7.4 g/dL (6.4-8.2) Albumin 3.5 g/dL (3.4-5.0) Albumin/Globulin Ratio 0.9 (1.0-1.7) Test 08/26/19 11:25 08/26/19 16:43 08/26/19 17:33 08/26/19 22:49 Glucose (Fingerstick) 163 mg/dL (70-99) 148 mg/dL (70-99) 149 mg/dL (70-99) 149 mg/dL (70-99) Test 08/27/19 07:36 Glucose (Fingerstick) 159 mg/dL (70-99) Laboratory Tests Test 08/26/19 08:17 08/26/19 11:25 08/26/19 16:43 08/26/19 17:33 Glucose (Fingerstick) 140 mg/dL (70-99) 163 mg/dL (70-99) 148 mg/dL (70-99) 149 mg/dL (70-99) Test 08/26/19 22:49 08/27/19 07:36 Glucose (Fingerstick) 149 mg/dL (70-99) 159 mg/dL (70-99) Imaging Intraoperative x-rays show excellent positioning of hardware and near anatomic reduction proximal humerus Assessment Assessment POD#1 ORIF left humerus fracture Plan Plan of Care Appears stable from an orthopedic standpoint Change to Aquacel dressing prior to discharge Follow-up Anupama 10 days Sling for comfort, may remove for pendulum exercises gentle stretching below shoulder level and fine motor use of left shoulder no weightbearing on left upper extremity Justicifation of Admission Dx: Justifications for Admission: Justification of Admission Dx: N/A JULIA UMANZOR MD Aug 27, 2019 08:20
[2019-08-27] MEDS: oxyCODONE/APAP 10/325 1 TAB TABLET PO PRN ×2 (09:05→12:01)
--- NOTE | 2019-08-27 10:21 | PDOC ---
PULMONARY PROGRESS NOTES Subjective denies sob, cough, has psg, showed positional christel, her friend witnessed apnea after surgery Vitals Vital Signs Date Time Temp Pulse Resp B/P (MAP) Pulse Ox O2 Delivery O2 Flow Rate FiO2 08/27/19 09:05 20 95 4.0 08/27/19 08:00 Nasal Cannula 08/27/19 07:59 97.9 96 113/63 (80) 97.9 ROS: No Nausea, No Chest Pain General: Alert HEENT: Other (nc at perrl shallow oropharynx. ) Lungs: Clear Cardiovascular: S1, S2 Abdomen: Soft, Non-tender Neuro Exam: Alert Extremities: No Edema, Other (s/p r humerus surgery sling in place) Skin: Warm Labs Laboratory Tests Test 08/25/19 22:15 08/26/19 00:01 08/26/19 06:40 08/26/19 08:17 Glucose (Fingerstick) 136 mg/dL (70-99) 140 mg/dL (70-99) Coronavirus (COVID-19)(PCR) Negative (NEGATIVE) White Blood Count 7.7 x10^3/uL (4.0-11.0) Red Blood Count 4.92 x10^6/uL (3.50-5.40) Hemoglobin 15.5 g/dL (12.0-15.5) Hematocrit 46.2 % (36.0-47.0) Mean Corpuscular Volume 94 fL (79-100) Mean Corpuscular Hemoglobin 32 pg (25-35) Mean Corpuscular Hemoglobin Concent 34 g/dL (31-37) Red Cell Distribution Width 14.8 % (11.5-14.5) Platelet Count 212 x10^3/uL (140-400) Neutrophils (%) (Auto) 51 % (31-73) Lymphocytes (%) (Auto) 36 % (24-48) Monocytes (%) (Auto) 11 % (0-9) Eosinophils (%) (Auto) 2 % (0-3) Basophils (%) (Auto) 1 % (0-3) Neutrophils # (Auto) 4.0 x10^3/uL (1.8-7.7) Lymphocytes # (Auto) 2.8 x10^3/uL (1.0-4.8) Monocytes # (Auto) 0.8 x10^3/uL (0.0-1.1) Eosinophils # (Auto) 0.1 x10^3/uL (0.0-0.7) Basophils # (Auto) 0.0 x10^3/uL (0.0-0.2) Sodium Level 139 mmol/L (136-145) Potassium Level 3.8 mmol/L (3.5-5.1) Chloride Level 104 mmol/L (98-107) Carbon Dioxide Level 25 mmol/L (21-32) Anion Gap 10 (6-14) Blood Urea Nitrogen 13 mg/dL (7-20) Creatinine 1.0 mg/dL (0.6-1.0) Estimated GFR (Cockcroft-Gault) 59.7 BUN/Creatinine Ratio 13 (6-20) Glucose Level 165 mg/dL (70-99) Calcium Level 8.5 mg/dL (8.5-10.1) Total Bilirubin 0.9 mg/dL (0.2-1.0) Aspartate Amino Transf (AST/SGOT) 101 U/L (15-37) Alanine Aminotransferase (ALT/SGPT) 123 U/L (14-59) Alkaline Phosphatase 91 U/L (46-116) Total Protein 7.4 g/dL (6.4-8.2) Albumin 3.5 g/dL (3.4-5.0) Albumin/Globulin Ratio 0.9 (1.0-1.7) Test 08/26/19 11:25 08/26/19 16:43 08/26/19 17:33 08/26/19 22:49 Glucose (Fingerstick) 163 mg/dL (70-99) 148 mg/dL (70-99) 149 mg/dL (70-99) 149 mg/dL (70-99) Test 08/27/19 07:36 Glucose (Fingerstick) 159 mg/dL (70-99) Laboratory Tests Test 08/26/19 11:25 08/26/19 16:43 08/26/19 17:33 08/26/19 22:49 Glucose (Fingerstick) 163 mg/dL (70-99) 148 mg/dL (70-99) 149 mg/dL (70-99) 149 mg/dL (70-99) Test 08/27/19 07:36 Glucose (Fingerstick) 159 mg/dL (70-99) Medications Active Scripts Medications Dose Route/Sig Max Daily Dose Days Date Category Symbicort 160-4.5 Mcg Inhaler (Budesonide/Formoterol Fumarate) 10.2 Gm Hfa.aer.ad 2 Puff IH BID 08/26/19 Reported Diethylpropion Hcl 75 Mg Tablet.er 75 Mg PO DAILY 08/26/19 Reported Lexapro (Escitalopram Oxalate) 20 Mg Tablet 20 Mg PO DAILY 08/26/19 Reported Klor-Con M20 (Potassium Chloride) 20 Meq Tab.er.prt 20 Meq PO BID 08/26/19 Reported Xanax (Alprazolam) 0.25 Mg Tablet 1 Tab PO PRN BID PRN 08/26/19 Reported Atorvastatin Calcium 10 Mg Tablet 1 Tab PO HS 08/26/19 Reported Lamotrigine 100 Mg Tablet 1 Tab PO HS 08/26/19 Reported Topiramate 100 Mg Tablet 1 Tab PO BID 30 08/26/19 Reported Stool Softener Tablet (Sennosides/Docusate Sodium) 1 Each Tablet 1 Each PO 02/18/16 Reported Lortab 10-325 mg Tablet (Hydrocodone/Acetaminophen) 1 Each Tablet 1 Tab PO Q4HRS PRN 02/18/16 Reported Coq-10 (Ubidecarenone) 100 Mg Capsule 100 Mg PO DAILY 07/27/15 Reported Tizanidine Hcl 4 Mg Tablet 1 Tab PO BID PRN 12/21/14 Reported Mirapex (Pramipexole Di-Hcl) 0.25 Mg Tablet 0.125 Mg PO QHS 12/21/14 Reported Jardiance (Empagliflozin) 10 Mg Tablet 10 Mg PO DAILY 08/16/14 Reported Spiriva (Tiotropium [place]) 18 Mcg Cap.w.dev 1 Cap IH DAILY 05/10/14 Reported Omeprazole 40 Mg Capsule.dr 40 Mg PO DAILY 07/21/13 Reported Vitamin D3 (Cholecalciferol (Vitamin D3)) 50,000 Unit Capsule 50,000 Unit PO WEEKLY 07/21/13 Reported Lasix (Furosemide) 40 Mg Tablet 40 Mg PO DAILY 07/21/13 Reported Proair Hfa Inhaler (Albuterol Sulfate) 8.5 Gm Hfa.aer.ad 8.5 Gm IH 06/23/13 Reported Impression . IMPRESSION: 1. humerus fx, s/p orif 2. Underlying morbid obesity. christel 3. Possible chronic obstructive pulmonary disease. Plan . RECOMMENDATIONS: 1. on RA 2. 02 titration, avoid oversedation 3. p.r.n. bronchodilators. 4. P.r.n. ABGs 5. Incentive spirometry the importance of use reviewed 6. repeat psg, pfts as out pt discussed w pt CANDICE ALARCON MD Aug 27, 2019 10:21
[2019-08-27] MEDS ORDERED: OXYC-411 PO (10:34)
--- NOTE | 2019-08-27 12:16 | PDOC3 ---
Discharge Summary Visit Information Date of Admission: Aug 25, 2019 Date of Discharge: Aug 27, 2019 Final Diagnosis Left proximal humerus fracture after a fall. very morbid obesity, BMI 55 history of chronic obstructive pulmonary disease chronic pain meds, back pain, f/u Dr. Mayo CHF, on lasix anxiety and depression Brief Hospital Course Allergies Allergies Coded Allergies Type Severity Reaction Last Updated Verified cephalexin Adverse Reaction Intermediate Nausea and Vomiting 08/26/19 Yes morphine Adverse Reaction Intermediate Nausea and Vomiting 08/26/19 Yes phentermine Adverse Reaction Intermediate MUSCULAR PROBLEMS 08/26/19 Yes Vital Signs Vital Signs Date Time Temp Pulse Resp B/P (MAP) Pulse Ox O2 Delivery O2 Flow Rate FiO2 08/27/19 12:01 18 93 Room Air 08/27/19 11:16 2.0 08/27/19 07:59 97.9 96 113/63 (80) 97.9 Lab Results Laboratory Tests Test 08/25/19 22:15 08/26/19 00:01 08/26/19 06:40 08/26/19 08:17 Glucose (Fingerstick) 136 mg/dL (70-99) 140 mg/dL (70-99) Coronavirus (COVID-19)(PCR) Negative (NEGATIVE) White Blood Count 7.7 x10^3/uL (4.0-11.0) Red Blood Count 4.92 x10^6/uL (3.50-5.40) Hemoglobin 15.5 g/dL (12.0-15.5) Hematocrit 46.2 % (36.0-47.0) Mean Corpuscular Volume 94 fL (79-100) Mean Corpuscular Hemoglobin 32 pg (25-35) Mean Corpuscular Hemoglobin Concent 34 g/dL (31-37) Red Cell Distribution Width 14.8 % (11.5-14.5) Platelet Count 212 x10^3/uL (140-400) Neutrophils (%) (Auto) 51 % (31-73) Lymphocytes (%) (Auto) 36 % (24-48) Monocytes (%) (Auto) 11 % (0-9) Eosinophils (%) (Auto) 2 % (0-3) Basophils (%) (Auto) 1 % (0-3) Neutrophils # (Auto) 4.0 x10^3/uL (1.8-7.7) Lymphocytes # (Auto) 2.8 x10^3/uL (1.0-4.8) Monocytes # (Auto) 0.8 x10^3/uL (0.0-1.1) Eosinophils # (Auto) 0.1 x10^3/uL (0.0-0.7) Basophils # (Auto) 0.0 x10^3/uL (0.0-0.2) Sodium Level 139 mmol/L (136-145) Potassium Level 3.8 mmol/L (3.5-5.1) Chloride Level 104 mmol/L (98-107) Carbon Dioxide Level 25 mmol/L (21-32) Anion Gap 10 (6-14) Blood Urea Nitrogen 13 mg/dL (7-20) Creatinine 1.0 mg/dL (0.6-1.0) Estimated GFR (Cockcroft-Gault) 59.7 BUN/Creatinine Ratio 13 (6-20) Glucose Level 165 mg/dL (70-99) Calcium Level 8.5 mg/dL (8.5-10.1) Total Bilirubin 0.9 mg/dL (0.2-1.0) Aspartate Amino Transf (AST/SGOT) 101 U/L (15-37) Alanine Aminotransferase (ALT/SGPT) 123 U/L (14-59) Alkaline Phosphatase 91 U/L (46-116) Total Protein 7.4 g/dL (6.4-8.2) Albumin 3.5 g/dL (3.4-5.0) Albumin/Globulin Ratio 0.9 (1.0-1.7) Test 08/26/19 11:25 08/26/19 16:43 08/26/19 17:33 08/26/19 22:49 Glucose (Fingerstick) 163 mg/dL (70-99) 148 mg/dL (70-99) 149 mg/dL (70-99) 149 mg/dL (70-99) Test 08/27/19 07:36 08/27/19 11:36 Glucose (Fingerstick) 159 mg/dL (70-99) 160 mg/dL (70-99) Laboratory Tests Test 08/26/19 16:43 08/26/19 17:33 08/26/19 22:49 08/27/19 07:36 Glucose (Fingerstick) 148 mg/dL (70-99) 149 mg/dL (70-99) 149 mg/dL (70-99) 159 mg/dL (70-99) Test 08/27/19 11:36 Glucose (Fingerstick) 160 mg/dL (70-99) Brief Hospital Course Ms. Fox is a 44 old female, admit with left arm pain after a fall ORIF surg, Dr. Altman, then pain better mult med problems, f/u primary care Discharge Information Condition at Discharge: Improved Follow Up: Weeks Disposition/Orders: D/C to Home Scheduled Atorvastatin Calcium (Atorvastatin Calcium) 10 Mg Tablet, 1 TAB PO HS for cholesterol, #30 Ref 5 (Reported) Entered as Reported by: ROSHNI GRAHAM on 08/26/19432 Last Taken: Unknown Dose on Unknown Date & Time Last Action: New Order on 08/26/19432 by ROSHNI GRAHAM Budesonide/Formoterol Fumarate (Symbicort 160-4.5 Mcg Inhaler) 10.2 Gm Hfa.aer.ad, 2 PUFF IH BID, #1 Ref 5 (Reported) Entered as Reported by: KELVIN DEAL RPH on 08/26/191156 Last Action: New Order on 08/26/191156 by KELVIN DEAL RPH Cholecalciferol (Vitamin D3) (Vitamin D3) 50,000 Unit Capsule, 50,000 UNIT PO WEEKLY, (Reported) Entered as Reported by: DEBRA ARTEAGA on 07/21/13 1050 Last Action: Reviewed on 08/26/19432 by ROSHNI GRAHAM Diethylpropion Hcl (Diethylpropion Hcl) 75 Mg Tablet.er, 75 MG PO DAILY, (Reported) Entered as Reported by: KELVIN DEAL RPH on 08/26/191152 Last Action: New Order on 08/26/191152 by KELVIN DEAL RPH Empagliflozin (Jardiance) 10 Mg Tablet, 10 MG PO DAILY, (Reported) Entered as Reported by: TYRA DUONG on 08/16/14 1145 Last Action: Reviewed on 08/26/19432 by ROSHNI GRAHAM Escitalopram Oxalate (Lexapro) 20 Mg Tablet, 20 MG PO DAILY for ANTI-DEPRESSANT, Ref 0 (Reported) Entered as Reported by: KELVIN DEAL RPH on 08/26/191152 Last Action: New Order on 08/26/191152 by KELVIN DEAL [facility] Furosemide (Lasix) 40 Mg Tablet, 40 MG PO DAILY, (Reported) Entered as Reported by: DEBRA ARTEAGA on 07/21/13 1050 Last Action: Edited on 08/26/191153 by KELVIN DEAL RP Lamotrigine (Lamotrigine) 100 Mg Tablet, 1 TAB PO HS for depression, #60 (Reported) Entered as Reported by: ROSHNI GRAHAM on 08/26/19432 Last Taken: Unknown Dose on Unknown Date & Time Last Action: New Order on 08/26/19432 by ROSHNI GRAHAM Omeprazole (Omeprazole) 40 Mg Capsule.dr, 40 MG PO DAILY, (Reported) Entered as Reported by: DEBRA ARTEAGA on 07/21/13 1050 Oxycodone Hcl/Acetaminophen (Oxycodone-Acetaminophen 10-325) 1 Each Tablet, 1 TAB PO Q4HRS for pain, #180 (Reported) Do not take Hydrocodone (Lortab) while using this medication Entered as Reported by: SILVIA IVERSON on 08/27/19 1034 Potassium Chloride (Klor-Con M20) 20 Meq Tab.er.prt, 20 MEQ PO BID for supplement, (Reported) Entered as Reported by: ROSHNI GRAHAM on 08/26/19432 Last Action: New Order on 08/26/19432 by ROSHNI GRAHAM Pramipexole Di-Hcl (Mirapex) 0.25 Mg Tablet, 0.125 MG PO QHS, (Reported) Entered as Reported by: STEVE VALADEZ on 12/21/14 1435 Last Action: Edited on 08/26/191152 by KELVIN DEAL, [facility] Tiotropium [place] (Spiriva) 18 Mcg Cap.w.dev, 1 CAP IH DAILY, #30 Ref 3 (Reported) Entered as Reported by: MASSIEL MICHAELS on 05/10/14 1312 Topiramate (Topiramate) 100 Mg Tablet, 1 TAB PO BID for migraines for 30 Days, #60 Ref 0 (Reported) Entered as Reported by: ROSHNI GRAHAM on 08/26/19432 Last Taken: Unknown Dose on Unknown Date & Time Last Action: New Order on 08/26/19432 by ROSHNI GRAHAM Ubidecarenone (Coq-10) 100 Mg Capsule, 100 MG PO DAILY, (Reported) Entered as Reported by: ALYX DOMINIQUE on 07/27/15 0327 Scheduled PRN Alprazolam (Xanax) 0.25 Mg Tablet, 1 TAB PO PRN BID PRN for ANXIETY / AGITATION, #30 (Reported) Entered as Reported by: ROSHNI GRAHAM on 08/26/19432 Last Taken: UNKNOWN on Unknown Date & Time Last Action: Edited on 08/26/19 1155 by KELVIN DEAL [facility] Hydrocodone/Acetaminophen (Lortab 10-325 mg Tablet) 1 Each Tablet, 1 TAB PO Q4HRS PRN for PAIN, #40 Ref 0 (Reported) Do not take while taking oxycodone Entered as Reported by: Messi Mercer on 02/18/16 1012 Last Action: Reviewed on 08/26/19432 by ROSHNI GRAHAM Tizanidine Hcl (Tizanidine Hcl) 4 Mg Tablet, 1 TAB PO BID PRN for MUSCLE SPASMS, #60 (Reported) Entered as Reported by: STEVE VALADEZ on 12/21/14 1437 Miscellaneous Medications Albuterol Sulfate (Proair Hfa Inhaler) 8.5 Gm Hfa.aer.ad, 8.5 GM IH, (Reported) Entered as Reported by: PATSY BAILEY on 06/23/13 0033 Last Action: Reviewed on 08/26/19432 by ROSHNI GRAHAM Sennosides/Docusate Sodium (Stool Softener Tablet) 1 Each Tablet, 1 EACH PO, (Reported) Entered as Reported by: Messi Mercer on 02/18/16 1013 Discontinued Medications Ciprofloxacin Hcl (Cipro) 500 Mg Tablet, 1 TAB PO BID PRN for UTI, #10 Discontinued Reason: NOT TAKING Prescribed by: NOY LYLE D.O. on 06/18/16 0216 Last Action: Discontinued on 08/26/19 1148 by KELVIN DEAL [facility] Citalopram Hydrobromide (Celexa) 20 Mg Tablet, 1 TAB PO HS for depression, #90 Ref 3 (Reported) Discontinued Reason: NOT TAKING Entered as Reported by: ROSHNI GRAHAM on 6/12/20 0433 Last Taken: Unknown Dose on Unknown Date & Time Last Action: Discontinued on 08/26/19 1148 by KELVIN DAEL RP Doxycycline Hyclate (Doxycycline Hyclate) 100 Mg Tablet, 100 MG PO BID, (Reported) Discontinued Reason: NOT TAKING Entered as Reported by: DANIELITO SWIFT on 02/14/16 1627 Last Action: Discontinued on 08/26/19 1148 by KELVIN DEAL RP Fluoxetine Hcl (Prozac) 40 Mg Capsule, 60 MG PO DAILY, (Reported) Discontinued Reason: NOT TAKING Entered as Reported by: DEBRA ARTEAGA on 07/21/13 1050 Last Action: Discontinued on 08/26/19 1148 by KELVIN DEAL RP Gabapentin (Gabapentin ) 300 Mg Capsule, 300 MG PO HS, (Reported) Discontinued Reason: D/C Entered as Reported by: SANDEEP LUQUE RN on 08/24/14 0250 Last Action: Discontinued on 08/26/19 1155 by KELVIN DEAL RP Metronidazole (Flagyl) 500 Mg Tablet, 500 MG PO TID for Vaginosis, #30 Discontinued Reason: NOT TAKING Prescribed by: NOY LYLE D.O. on 06/18/16 0216 Last Action: Discontinued on 08/26/19 1148 by KELVIN DEAL RP Mometasone/Formoterol (Dulera 100 Mcg/5 Mcg Inhaler) 13 Gm Hfa.aer.ad, 2 PUFF IH BID, #13 Ref 2 (Reported) Discontinued Reason: CHANGE Entered as Reported by: ALYX DOMINIQUE on 07/27/15 0327 Last Action: Discontinued on 08/26/19 1157 by KELVIN DEAL RP Potassium Chloride (Potassium Chloride ) 10 Meq Capsule.er, 1 CAP PO DAILY, #90 Ref 1 (Reported) Discontinued Reason: NOT TAKING Entered as Reported by: STEVE VALADEZ on 12/21/14 1148 Last Action: Discontinued on 08/26/19 1148 by KELVIN DEAL RP Progesterone,Micronized (Progesterone) 200 Mg Capsule, 200 MG PO QHS, (Reported) Discontinued Reason: D/C Entered as Reported by: IBAN VILLALPANDO on 07/27/15 1142 Last Action: Discontinued on 08/26/19 1154 by KELVIN DEAL RP Thyroid,Pork ([place] Thyroid) 60 Mg Tablet, 1 TAB PO DAILY, #30 Ref 5 (Reported) Discontinued Reason: D/C Entered as Reported by: STEVE VALADEZ on 12/21/14 1147 Last Action: Discontinued on 08/26/19 1154 by KELVIN DEAL [facility] Thyroid,Pork ([place] Thyroid) 30 Mg Tablet, 1 TAB PO QHS, #30 Ref 5 (Reported) Discontinued Reason: D/C Entered as Reported by: IBAN VILLALPANDO on 07/27/15 1122 Last Action: Discontinued on 08/26/19 1154 by KELVIN DEAL [facility] Topiramate (Trokendi Xr) 200 Mg Cap.er.24h, 200 MG PO DAILY, (Reported) Discontinued Reason: CHANGE Entered as Reported by: ALYX DOMINIQUE on 07/27/15326 Last Action: Discontinued on 08/26/19 1153 by KELVIN DEAL [facility] Varenicline Tartrate (Chantix) 1 Mg Tablet, 1 MG PO BID, (Reported) Entered as Reported by: ALYX DOMINIQUE on 07/27/15326 Patient Instructions Patient Instructions > 30 min Justicifation of Admission Dx: Justifications for Admission: Justification of Admission Dx: N/A NARA CHAND MD Aug 27, 2019 12:16
== END 2019-08-27 12:30 | disposition home or self-care (01) | DRG 493 ==
LOC: 4 NORTH 19:08
PROVIDERS: ADMIT Internal Medicine; ATTEND Internal Medicine
PROC: 0PSG04Z Reposition Left Humeral Shaft with Internal Fixation Device, Open Approach (ICD-10-PCS; principal; 2019-08-26 12:00)
DX: S42.232A 3-part fracture of surgical neck of left humerus, initial encounter for closed fracture (principal); Z68.43 Body mass index [BMI] 50.0-59.9, adult; S80.01XA Contusion of right knee, initial encounter; J44.9 Chronic obstructive pulmonary disease, unspecified; G47.33 Obstructive sleep apnea (adult) (pediatric); F41.9 Anxiety disorder, unspecified; F32.9 Major depressive disorder, single episode, unspecified; E66.01 Morbid (severe) obesity due to excess calories; Z80.1 Family history of malignant neoplasm of trachea, bronchus and lung; Z83.3 Family history of diabetes mellitus; Z87.891 Personal history of nicotine dependence; W01.0XXA Fall on same level from slipping, tripping and stumbling without subsequent striking against object, initial encounter; Y93.89 Activity, other specified; Y92.89 Other specified places as the place of occurrence of the external cause; Y99.8 Other external cause status; G89.29 Other chronic pain; I50.9 Heart failure, unspecified; Z20.828 Contact with and (suspected) exposure to other viral communicable diseases
CPT/HCPCS: 36415; 71045; 76000; 80053; 82962; 85025; 94640; 94760; A7015; C1713; J0780; J1100; J1170; J2405; J2704; J2710; J3010; J3490; J7030; J7120; U0003; A4565; G0378

== ENCOUNTER 2020-01-01 14:20 | Emergency (ER) | payer BC, OTHER ==
[~2020-01-01] VITALS: Ht 172.7 cm; Wt 154.5 kg
[~2020-01-01 14:20] MED LIST changes: +ALPR0.25 PO; +ATOR10TA60 PO; +BUDE10.2 IH; +CITA20TA9 PO; +DIET75TA PO; +LAMO100T8 PO; +LEXAPRO20 MG PO; +OXYC1TAB20 PO; +POTA20TA4 PO; +TOPI100T8 PO
--- NOTE | 2020-01-01 15:10 | ED.ADGEN ---
Past Medical History Past Medical History: Asthma, COPD, Diabetes-Type II, Diverticulitis, Diverticulosis Additional Past Medical Histor: Hypokalemia, Morbid Obesity Past Surgical History: Appendectomy, Cholecystectomy, Colectomy, Hysterectomy, Tonsillectomy Additional Past Surgical Histo: bladder tape. knee surgery scope, PART OF COLON REMOVED DUE TO DIV Smoking Status: Former Smoker Alcohol Use: None Drug Use: None General Adult EDM: Chief Complaint: ABDOMINAL PAIN HPI: HPI: Patient is a 44 year old morbidly obese female, accompanied by her , who presents emergency department with complaints of right upper quadrant pain that radiates to her back for the last 2 days. She reports the pain is a sharp cramping sensation that comes and goes but has been more constant today. She denies any vomiting, diarrhea, dysuria, hematuria, increased urinary frequency, back pain, fever, shortness of breath, or increased pain with movement. She d oes report nausea with the pain at this time but denies any vomiting. Patient reports her last bowel movement was earlier today she denies any rectal bleeding, she denies any abnormality to her bowel movement. Patient reports history of a previous bowel resection and diverticulitis. She denies any abnormal vaginal discharge or odor. She currently rates her pain a 6 out of 10 on the pain scale, she denies any alleviating or exacerbating factors. Review of Systems: Review of Systems: Complete ROS is negative unless otherwise noted in HPI. Current Medications: Current Medications Medications (Trade) Dose Ordered Sig/[facility] Start Time Stop Time Status Last Admin Dose Admin Fentanyl Citrate (Fentanyl 2ml Vial) 50 mcg 1X ONCE 01/01/20 16:00 01/01/20 16:01 DC 01/01/20 16:02 50 MCG Info (CONTRAST GIVEN -- Rx MONITORING) 1 each PRN DAILY PRN 01/01/20 17:15 01/01/20 18:41 DC Iohexol (Omnipaque 300 Mg/ml) 75 ml 1X ONCE 01/01/20 17:00 01/01/20 17:02 DC 01/01/20 17:15 75 ML Ondansetron HCl (Zofran) 4 mg 1X ONCE 01/01/20 16:00 01/01/20 16:01 DC 01/01/20 16:01 4 MG Sodium Chloride 1,000 ml @ 1,000 mls/hr 1X ONCE 01/01/20 15:30 01/01/20 16:29 DC 01/01/20 16:01 1,000 MLS/HR Allergies: Allergies: Allergies Coded Allergies Type Severity Reaction Last Updated Verified cephalexin Adverse Reaction Intermediate Nausea and Vomiting 08/26/19 Yes morphine Adverse Reaction Intermediate Nausea and Vomiting 08/26/19 Yes phentermine Adverse Reaction Intermediate MUSCULAR PROBLEMS 08/26/19 Yes Physical Exam: PE: See Above Constitutional: Well developed, well nourished, no acute distress, non-toxic appearance, morbidly obese. [] HENT: Normocephalic, atraumatic, bilateral external ears normal, nose normal. [] Eyes: PERRLA, EOMI, conjunctiva normal, no discharge. [] Neck: Normal range of motion, no stridor. [] Cardiovascular:Heart rate regular rhythm Lungs & Thorax: Respirations even and unlabored, no retractions, no respiratory distress Abdomen: soft, right upper quadrant and right lower quadrant tenderness to palpation without guarding or rebound tenderness Skin: Warm, dry, no erythema, no rash. [] Extremities: No cyanosis, ROM intact, 1+ edema BLE Neurologic: Alert and oriented X 3, no focal deficits noted. [] Psychologic: Affect normal, judgement normal, mood normal. [] Current Patient Data: Labs: Laboratory Tests Test 01/01/20 14:48 01/01/20 15:11 01/01/20 15:55 Urine Collection Type Unknown Urine Color Yellow Urine Clarity Clear Urine pH 6.5 (<5.0-8.0) Urine Specific [place] >=1.030 (1.000-1.030) Urine Protein Negative mg/dL (NEG-TRACE) Urine Glucose (UA) >=1000 mg/dL (NEG) Urine Ketones (Stick) Negative mg/dL (NEG) Urine Blood Negative (NEG) Urine Nitrite Negative (NEG) Urine Bilirubin Negative (NEG) Urine Urobilinogen Dipstick 1.0 mg/dL (0.2 mg/dL) Urine Leukocyte Esterase Negative (NEG) Urine RBC 0 /HPF (0-2) Urine WBC 1-4 /HPF (0-4) Urine Squamous Epithelial Cells Many /LPF Urine Bacteria Moderate /HPF (0-FEW) Urine Yeast Present /HPF POC Urine HCG, Qualitative Hcg negative (Negative) White Blood Count 10.8 x10^3/uL (4.0-11.0) Red Blood Count 4.73 x10^6/uL (3.50-5.40) Hemoglobin 15.3 g/dL (12.0-15.5) Hematocrit 44.4 % (36.0-47.0) Mean Corpuscular Volume 94 fL (79-100) Mean Corpuscular Hemoglobin 32 pg (25-35) Mean Corpuscular Hemoglobin Concent 34 g/dL (31-37) Red Cell Distribution Width 14.5 % (11.5-14.5) Platelet Count 223 x10^3/uL (140-400) Neutrophils (%) (Auto) 59 % (31-73) Lymphocytes (%) (Auto) 30 % (24-48) Monocytes (%) (Auto) 7 % (0-9) Eosinophils (%) (Auto) 2 % (0-3) Basophils (%) (Auto) 1 % (0-3) Neutrophils # (Auto) 6.4 x10^3/uL (1.8-7.7) Lymphocytes # (Auto) 3.3 x10^3/uL (1.0-4.8) Monocytes # (Auto) 0.8 x10^3/uL (0.0-1.1) Eosinophils # (Auto) 0.2 x10^3/uL (0.0-0.7) Basophils # (Auto) 0.1 x10^3/uL (0.0-0.2) Sodium Level 141 mmol/L (136-145) Potassium Level 3.8 mmol/L (3.5-5.1) Chloride Level 105 mmol/L (98-107) Carbon Dioxide Level 28 mmol/L (21-32) Anion Gap 8 (6-14) Blood Urea Nitrogen 8 mg/dL (7-20) Creatinine 0.8 mg/dL (0.6-1.0) Estimated GFR (Cockcroft-Gault) 77.2 BUN/Creatinine Ratio 10 (6-20) Glucose Level 126 mg/dL (70-99) H Calcium Level 8.7 mg/dL (8.5-10.1) Magnesium Level 2.2 mg/dL (1.8-2.4) Total Bilirubin 0.3 mg/dL (0.2-1.0) Aspartate Amino Transferase (AST) 46 U/L (15-37) H Alanine Aminotransferase (ALT) 83 U/L (14-59) H Alkaline Phosphatase 82 U/L (46-116) Total Protein 7.1 g/dL (6.4-8.2) Albumin 3.2 g/dL (3.4-5.0) L Albumin/Globulin Ratio 0.8 (1.0-1.7) L Lipase 112 U/L (73-393) Laboratory Tests 01/01/20 15:55 Laboratory Tests 01/01/20 15:55 Vital Signs: Vital Signs Date Time Temp Pulse Resp B/P (MAP) Pulse Ox O2 Delivery O2 Flow Rate FiO2 01/01/20 18:13 62 131/59 (83) 96 Room Air 01/01/20 15:20 98.1 20 98.1 EKG: EKG: [] Heart Score: Risk Factors: Risk Factors: DM, Current or recent (<one month) smoker, HTN, HLP, family history of CAD, obesity. Risk Scores: Score 0 - 3: 2.5% MACE over next 6 weeks - Discharge Home Score 4 - 6: 20.3% MACE over next 6 weeks - Admit for Clinical Observation Score 7 - 10: 72.7% MACE over next 6 weeks - Early Invasive Strategies Radiology/Procedures: Radiology/Procedures: PROCEDURE: CT ABD PELV W/ IV CONTRST ONLY Exam: CT of abdomen and pelvis with contrast INDICATION: Right flank pain TECHNIQUE: Sequential axial images through the abdomen and pelvis obtained following the administration of 75 mL of Omni 300 IV contrast. Sagittal and coronal reformatted images were reconstructed from the axial data and reviewed. Comparisons: 08/25/2015 FINDINGS: Heart size is normal. No pericardial effusion. Visualized lung bases are clear. No pleural effusion. Liver, spleen, pancreas and adrenals are unremarkable. Horseshoe kidney is noted. No renal or ureteral calculi are identified. Bladder is distended and appears thin-walled. Uterus is absent. No abnormal adnexal mass. Large and small bowel are unremarkable. Appendix is not identified. No free intra-abdominal air or fluid. No obstruction. Abdominal aorta has a normal course and caliber. Abdominal vasculature is patent. No enlarged intra-abdominal lymph nodes are identified. No suspicious osseous lesions or acute fractures. IMPRESSION: No acute process identified within the abdomen or pelvis. [] Course & Med Decision Making: Course & Med Decision Making Pertinent Labs and Imaging studies reviewed. (See chart for details) 44-year-old female with extensive abdominal history presents to the emergency department with complaints of right upper quadrant/flank pain. UA was is present in the urine. CT abdomen pelvis with IV contrast reveals no acute findings. Patient CBC is unremarkable. CMP reveals a glucose of 126, AST of 46, ALT of 83, normal lipase otherwise unremarkable. The patient reported feeling better after IV fluids and pain medication. Prescription was written for fluconazole 150 mg take 1 tablet 1 time may repeat again if symptomatic in 3 days. I encouraged the patient to follow-up with her primary care doctor in 1 to 2 days for repeat evaluation, return to the ER symptoms worsen or fever develops. Vital signs are stable throughout stay Patient and her verbalized an understanding of home care, medications, follow-up, and return to ED instructions and was in agreement with the plan of care. [] Dragon Disclaimer: Dragon Disclaimer: This electronic medical record was generated, in whole or in part, using a voice recognition dictation system. Departure Departure Impression: Primary Impression: Abdominal pain Additional Impression: Yeast UTI Disposition: 01 DC HOME SELF CARE/HOMELESS Condition: STABLE Referrals: DELISA HAYS MD (PCP) Patient Instructions: Abdominal Pain (Nonspecific), Urinary Tract Infection, [id number] Additional Instructions: Fill prescriptions and use them as directed. Recommend clear fluids for the next 24 hours. Then you may advance to bland foods such as bananas, rice, applesauce, and dry toast. Increase clear fluids, avoid bladder irritants such as caffeine, carbonation, and spicy foods. Follow-up with your primary care doctor in the next 1-2 days. Return to the emergency room if your symptoms worsen. Scripts Fluconazole (DIFLUCAN) 150 Mg Tablet 1 TAB PO ONCE, #1 TAB 1 Refill Prov: DINORA COLLINS APRN 01/01/20 Problem Qualifiers Primary Impression: Abdominal pain Abdominal location: right lower quadrant Qualified Codes: R10.31 - Right lower quadrant pain DINORA COLLINS CARDIOLOGY FELLOW Jan 01, 2020 15:10
[2020-01-01] MEDS ORDERED: IV NORMAL SALINE 1000ML BAG 1,000 ML IV ONE (15:30)
[2020-01-01 15:53] LABS: BILIRUBIN,URINE NEGATIVE (NEG); CLARITY,URINE CLEAR; COLOR,URINE YELLOW; NITRITE,URINE NEGATIVE (NEG); PH,URINE 6.5 (<5.0-8.0); PROTEIN,URINE NEGATIVE (NEG-TRACE)
[2020-01-01] MEDS ORDERED: fentaNYL PF VIAL 100 MCG/2 ML VIAL IV ONE (16:00)
[2020-01-01] MEDS ORDERED: ONDANSETRON PF 4 MG/2 ML VIAL. IV ONE (16:00)
[2020-01-01 16:01] LABS: BASO # 0.1 x10^3/uL (0.0-0.2); BASO % 1 % (0-3); EOS # 0.2 x10^3/uL (0.0-0.7); EOS % 2 % (0-3); HEMATOCRIT 44.4 % (36.0-47.0); HEMOGLOBIN 15.3 g/dL (12.0-15.5); LYMPH # 3.3 x10^3/uL (1.0-4.8); LYMPH % 30 % (24-48); MEAN CORPUSCULAR HEMOGLOBIN 32 pg (25-35); MEAN CORPUSCULAR HGB CONC 34 g/dL (31-37); MEAN CORPUSCULAR VOLUME 94 fL (79-100); MONO # 0.8 x10^3/uL (0.0-1.1); MONO % 7 % (0-9); NEUT # 6.4 x10^3/uL (1.8-7.7); NEUT % 59 % (31-73); PLATELET COUNT 223 x10^3/uL (140-400); RED BLOOD COUNT 4.73 x10^6/uL (3.50-5.40); RED CELL DISTRIBUTION WIDTH 14.5 % (11.5-14.5); WHITE BLOOD COUNT 10.8 x10^3/uL (4.0-11.0)
[2020-01-01 16:09] LABS: CALCIUM 8.7 mg/dL (8.5-10.1); CREATININE 0.8 mg/dL (0.6-1.0); GFR 77.2; POTASSIUM 3.8 mmol/L (3.5-5.1)
[2020-01-01 16:10] LABS: BACTERIA,URINE MODERATE /HPF (0-FEW); RBC,URINE 0 /HPF (0-2); YEAST,URINE PRESENT /HPF
[2020-01-01 16:14] LABS: ALBUMIN 3.2 g/dL (3.4-5.0); ALBUMIN/GLOBULIN RATIO 0.8 (1.0-1.7); MAGNESIUM 2.2 mg/dL (1.8-2.4); TOTAL BILIRUBIN 0.3 mg/dL (0.2-1.0); TOTAL PROTEIN 7.1 g/dL (6.4-8.2)
[2020-01-01] MEDS ORDERED: IOHEXOL 300 MG/ML 100ML VIAL. IV ONE (17:00)
[2020-01-01] MEDS ORDERED: CONTRAST GIVEN. MC PRN (17:15)
--- NOTE | 2020-01-01 17:35 | RAD ---
Exam: CT of abdomen and pelvis with contrast INDICATION: Right flank pain TECHNIQUE: Sequential axial images through the abdomen and pelvis obtained following the administration of 75 mL of Omni 300 IV contrast. Sagittal and coronal reformatted images were reconstructed from the axial data and reviewed. Comparisons: 08/25/2015 FINDINGS: Heart size is normal. No pericardial effusion. Visualized lung bases are clear. No pleural effusion. Liver, spleen, pancreas and adrenals are unremarkable. Horseshoe kidney is noted. No renal or ureteral calculi are identified. Bladder is distended and appears thin-walled. Uterus is absent. No abnormal adnexal mass. Large and small bowel are unremarkable. Appendix is not identified. No free intra-abdominal air or fluid. No obstruction. Abdominal aorta has a normal course and caliber. Abdominal vasculature is patent. No enlarged intra-abdominal lymph nodes are identified. No suspicious osseous lesions or acute fractures. IMPRESSION: No acute process identified within the abdomen or pelvis. Exposure: One or more of the following in the visualized dose reduction techniques were utilized for this examination: 1. Automated exposure control 2. Adjustment of the MA and/or KV according to patient size 3. Use of iterative of reconstructive technique Electronically signed by: Cristal Kelley MD (01/01/2020 5:32 PM) [facility]
[2020-01-01 18:13] VITALS: BP 131/59
[2020-01-01] MEDS ORDERED: FLUC150T PO (18:33)
== END 2020-01-01 18:41 | disposition home or self-care (01) ==
LOC: ER 14:20
DX: R10.11 Right upper quadrant pain (principal); B37.49 Other urogenital candidiasis; R20.2 Paresthesia of skin; R11.0 Nausea; J44.9 Chronic obstructive pulmonary disease, unspecified; E11.9 Type 2 diabetes mellitus without complications; E66.01 Morbid (severe) obesity due to excess calories; Z68.43 Body mass index [BMI] 50.0-59.9, adult; Z90.710 Acquired absence of both cervix and uterus; Z90.49 Acquired absence of other specified parts of digestive tract; Z98.890 Other specified postprocedural states; Z90.89 Acquired absence of other organs; Z87.891 Personal history of nicotine dependence; Z88.6 Allergy status to analgesic agent; Z88.1 Allergy status to other antibiotic agents; Z88.8 Allergy status to other drugs, medicaments and biological substances
CPT/HCPCS: 36415; 74177; 80053; 81001; 81025; 83690; 83735; 85025; 87086; 96361; 96374; 96375; 99285; J2405; J3010; J7030; Q9967

== ENCOUNTER → 2021-01-14 | Outpatient (CLI) | payer BC, OTHER ==
[~2021-01-14] MED LIST changes: +FLUC150T PO; +METH-561 PO; +METH-562 PO; -METH500T7 PO; -METH750T2 PO; -OMEP40CA45 PO; +OMEP40CA7 PO; +POTA-121 PO; -POTA20TA4 PO; +TIZA-75 PO; -TIZA4TAB2 PO
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
== END ==
LOC: KCIC MRI 10:00
PROVIDERS: ATTEND Family Medicine
DX: S09.90XD Unspecified injury of head, subsequent encounter (principal); R42 Dizziness and giddiness; X58.XXXA Exposure to other specified factors, initial encounter; Y93.89 Activity, other specified; Y92.89 Other specified places as the place of occurrence of the external cause; Y99.8 Other external cause status
CPT/HCPCS: 70551

== ENCOUNTER → 2021-03-12 | Outpatient (CLI) | payer BC, OTHER ==
[~2021-03-12] MED LIST changes: +IOHEXOL 300 MG/ML 100ML VIAL. IV ONE
[2021-03-12 08:56] LABS: CREATININE 0.8 mg/dL (0.6-1.0); GFR 76.9
--- NOTE | 2021-03-12 11:49 | RAD ---
MR#: [id number] Date of Study: 03/12/2021 Ordering Physician: THONG LUONG, Referring Physician: THONG LUONG, Tech: Victor Manuel Caldwell MBA, RDMS, RVT, RDCS, RTR APPROVED REPORT Patient Location : OUT-PATIENT Indications Lower Extremity Edema : Bilateral Findings Limited grayscale images of the bilateral saphenofemoral junctions are grossly unremarkable. The rig ht great saphenous vein measures 5.8 mm and the left great saphenous vein measures 5.0 mm. Bilateral greater and lesser saphenous veins do not reveal any evidence of reflux. Critical Notification Critical Value: No <Conclusion> 1. Negative for reflux in the bilateral greater and lesser saphenous veins. Signed by : Danilo Cardoza, Electronically Approved : 03/12/2021 11:49:18
--- NOTE | 2021-03-12 11:52 | RAD ---
MR#: [id number] Date of Study: 03/12/2021 Ordering Physician: THONG LUONG, Referring Physician: THONG LUONG, Tech: Victor Manuel Caldwell MBA, RDMS, RVT, RDCS, RTR APPROVED REPORT Bilateral Lower Extremity Venous Study for DVT Patient Location: OUT-PATIENT Indications Lower Extremity Edema: Bilateral Vein Imaging (Right) CFV (R): Compressible SFJ (R): Compressible FEM (R): Compressible POP (R): Compressible DFV (R): Compressible PTV (R): Spontaneous GSV (R): Spontaneous Peroneals (R): Spontaneous Vein Imaging (Left) CFV (L): Compressible SFJ (L): Compressible FEM (L): Compressible POP (L): Compressible DFV (L): Compressible PTV (L): Spontaneous GSV (L): Spontaneous Peroneals (L): Spontaneous Doppler Evaluation (Right) CFV (R): Spontaneous POP (R):Spontaneous Doppler Evaluation (Left) CFV (L):Spontaneous POP (L):Spontaneous Findings The bilateral lower extremity deep veins were evaluated for thrombus with color Doppler, spectral and grayscale images. On the right the grayscale images of the common femoral, superficial femoral and popliteal veins do n ot demonstrate any evidence of thrombus and these veins appear to be compressible. The below-knee vei ns were not well visualized but grossly appear to be compressible. Spectral imaging and color Doppler do not reveal any evidence of obstruction to flow with normal respirophasic variation above the knee . Below the knee there is spontaneous flow noted. On the left, the grayscale images of the common femoral, superficial femoral and popliteal veins do n ot demonstrate any evidence of thrombus and these veins appear to be compressible. The below-knee vei ns again were not well visualized but grossly appear to be compressible. Spectral imaging and color D oppler do not reveal any evidence of obstruction to flow with normal respirophasic variation above th e knee. The below-knee veins demonstrate spontaneous flow. Critical Notification Critical Value: No <Conclusion> 1. Negative for DVT in the BLE. Signed by : Danilo Cardoza, Electronically Approved : 03/12/2021 11:51:52
--- NOTE | 2021-03-12 13:47 | RAD ---
EXAM: 1. CTA HEAD WITH AND WITHOUT CONTRAST. 2. CTA NECK WITH AND WITHOUT CONTRAST. HISTORY: Dizziness and headache after injury. TECHNIQUE: Computed tomographic angiography of the head and neck was performed before and after the i ntravenous administration of iodinated contrast. Three-dimensional reconstructions were also performe d. One or more of the following individualized dose reduction techniques were utilized for this exami nation: 1. Automated exposure control. 2. Adjustment of the mA and/or kV according to patient size. 3. Use of iterative reconstruction technique. COMPARISON: None. FINDINGS: Angiographic findings: There are limitations from venous contamination. The aortic arch has a typical branching pattern. There is no arch vessel stenosis. There are mild atherosclerotic calcifications at both carotid bulbs. There is no CCA stenosis bilater ally. Both internal carotid arteries are patent without stenosis. The external carotid systems are pa tent. The vertebral arteries are patent. The basilar artery is patent. There is a persistent origin of the left posterior cerebral arter y. Both posterior cerebral arteries are patent. The right posterior communicating artery is visualize d. Administration of the right supraclinoid internal carotid artery is incidentally noted, a variant of normal. There is no intracranial internal carotid artery stenosis. The middle cerebral arteries are p atent. The anterior cerebral arteries are patent. The anterior communicating artery is visualized. Nonangiographic findings: There is no intracranial hemorrhage. Leon-white differentiation is preserve d. The ventricles are normal in size and position. The paranasal sinuses appear clear. The orbits are unremarkable. The temporal bones are unremarkable. Bone windows reveal no suspicious lesions. The lung apices demonstrate no acute abnormality. The parotid glands and submandibular glands are unremarkable. The thyroid gland demonstrates no suspi cious lesions. There are no laryngeal or pharyngeal masses. There are no pathologically enlarged lymph nodes. IMPRESSION: 1. No hemodynamically significant cervical arterial stenosis. 2. No intracranial stenosis or aneurysm. Normal variants as above. PQRS Compliance Statement - Stenosis calculations for CT, MR and conventional angiography are based u kofi measurement of the distal ICA diameter in accordance with the NASCET methodology. Stenosis calcu lations for carotid ultrasound studies are derived from validated velocity criteria which are known t o correlate with the NASCET methodology. Electronically signed by: Alfredo Ureña MD (03/12/2021 1:44 PM) [id number]
== END ==
LOC: CT 08:53
PROVIDERS: ATTEND Internal Medicine Cardiovascular Disease
DX: S19.9XXD Unspecified injury of neck, subsequent encounter (principal); I65.23 Occlusion and stenosis of bilateral carotid arteries; R42 Dizziness and giddiness; R51.9 Headache, unspecified; R60.9 Edema, unspecified
CPT/HCPCS: 36415; 70496; 70498; 82565; 93970; Q9967

== ENCOUNTER → 2021-04-29 | Outpatient (CLI) | payer BC, OTHER ==
[~2021-04-29] MED LIST changes: -IOHEXOL 300 MG/ML 100ML VIAL. IV ONE
--- NOTE | 2021-04-30 08:53 | CARD ---
MR#: [id number] Date of Study: 04/29/2021 Ordering Physician: THNOG LUONG, Referring Physician: THONG LUONG, Tech: Olinda Moody, [facility] APPROVED REPORT EXAM: Two-dimensional and M-mode echocardiogram with Doppler and color Doppler. Other Information Quality : AverageHR: 48bpm INDICATION COPD Murmur RISK FACTORS Smoking 2D DIMENSIONS Left Atrium(2D)3.1 (1.6-4.0cm)IVSd1.0 (0.7-1.1cm) Aortic Root(2D)3.4 (2.0-3.7cm)LVDd5.0 (3.9-5.9cm) LVOT Diameter2.1 (1.8-2.4cm)PWd1.0 (0.7-1.1cm) LVDs3.5 (2.5-4.0cm)FS (%) 29.6 % SV67.5 mlLVEF(%)56.4 (>50%) Aortic Valve AoV Peak Jake.126.7cm/sAoV VTI27.8cm AO Peak GR.6.4mmHgLVOT Peak Jake.83.1cm/s LVOT VTI 21.10cmAO Mean GR.4mmHg ABEBE (VMAX)1.21re5KIU (VTI)2.66cm2 Mitral Valve MV E Tdbkyinl57.7cm/sMV DECEL [id number] MV A Lzuxgprx60.5cm/sMV E Mean Gr.1mmHg MV RKD44koL/A Ratio1.6 MVA (PHT)4.09cm2 TDI E/Lateral E'5.3E/Medial E'9.1 Pulmonary Valve PV Peak Bajehdvv68.9cm/sPV Peak Grad.3mmHg Tricuspid Valve TR P. Tshvurne976ga/sRAP [id number] TR Peak Gr.72arToUBOZ03ecDr Pulmonary Vein S1 Tyiwuavv70.5cm/sD2 Uuwrkaro24.9cm/s PVa [id number] LEFT VENTRICLE The left ventricle is normal size. There is normal left ventricular wall thickness. The left ventricu lar systolic function is normal and the ejection fraction is within normal range. The Ejection Fracti on is 50-55%. There is normal LV segmental wall motion. The left ventricular diastolic function and f illing is normal for age. RIGHT VENTRICLE The right ventricle is normal size. There is normal right ventricular wall thickness. The right ventr icular systolic function is normal. ATRIA The left atrium size is normal. The right atrium size is normal. The interatrial septum is intact wit h no evidence for an atrial septal defect or patent foramen ovale as noted on 2-D or Doppler imaging. AORTIC VALVE The aortic valve is normal in structure and function. Doppler and Color Flow revealed no significant aortic regurgitation. There is no significant aortic valvular stenosis. Calculated aortic valve area is 2.67 cm2 with maximum pressure gradient of 8 mmHg and mean pressure gradient of 5 mmHg. MITRAL VALVE The mitral valve is normal in structure and function. There is no evidence of mitral valve prolapse. There is no mitral valve stenosis. Doppler and Color-flow revealed trace mitral regurgitation. TRICUSPID VALVE The tricuspid valve is normal in structure and function. Doppler and Color Flow revealed trace tricus pid regurgitation with an estimated PAP of 21 mmHg. There is no tricuspid valve stenosis. PULMONIC VALVE The pulmonic valve is not well visualized. Doppler and Color Flow revealed trace pulmonic valvular re gurgitation. There is no pulmonic valvular stenosis. GREAT VESSELS The aortic root is normal in size. The ascending aorta is normal in size. The IVC is normal in size a nd collapses >50% with inspiration. PERICARDIAL EFFUSION There is no evidence of significant pericardial effusion. Critical Notification Critical Value: No <Conclusion> The left ventricular systolic function is normal and the ejection fraction is within normal range. Th e Ejection Fraction is 50-55%. There is normal LV segmental wall motion. Signed by : Danilo Cardoza, Electronically Approved : 04/30/2021 08:53:18
== END ==
LOC: ECHO 08:40
PROVIDERS: ATTEND Internal Medicine Cardiovascular Disease
DX: R01.1 Cardiac murmur, unspecified (principal); J44.9 Chronic obstructive pulmonary disease, unspecified
CPT/HCPCS: 93306; C8929